=== PATIENT | male | born 1940 | race Hispanic/Latino ===

== ENCOUNTER 2022-03-07 12:10 | Inpatient (IN) | payer OTHER ==
--- OUTSIDE RECORDS SUMMARY | 2022-03-07 12:13 | XMS REPORT | Continuity of Care Document ---
:1940 Author Organization [facility] t Address [address] [place] [address] Care Team Providers Name Role Phone LUIS SPENCER Attending Clinician Unavailable JARAD ARNOLD Attending Clinician Unavailable Payers Payer Name Policy Type Policy Number Effective Date Expiration Date S ource MEDICARE B RAILROAD [id number] 2018 00:00:00 COMMERCIAL [id number] 2018 NON-CONTRACT 00:00:00 GENERIC Problems This patient has no known problems. Allergies, Adverse Reactions, Alerts Allergy Allergy Status Severity Reaction(s) Onset Inactive Treating Comm ents Source Name Type Date Date Clinician NO KNOWN Drug Active [facility] ALLERGIE [facility] Medications This patient has no known medications. Procedures This patient has no known procedures. Encounters Start End Encounter Admission Attending Care Care Encounter Source Date/Time Date/Time Type Type Clinicians Facility Department ID 2019-10-07 Inpatient HCAWU RAJENDRA [id number] [facility] 21:17:[address] [place] [address] 2020-04-16 2020-04-16 Outpatient Oswaldo SPENCER [facility] [id number] [facility] 11:20:00 11:20:00 LUIS florez [facility] 2019-05-12 2019-05-12 Outpatient Oswaldo ARNOLD [facility] [id number] [facility] 08:45:00 08:45:00 JARAD [facility] Results Test Description Test Time Test Comments Results Result Comments Source UA RFLX MICR CULT IF INDICATED 2019-10-08 00:35:00 Test Item Value Reference Range Interpretation Comme nts UA COLOR (test code = COLU) YELLOW YELLOW UA APPEARANCE (test code = APPU) CLEAR CLEAR UA GLUCOSE DIPSTICK (test code = DGLUU) NORMAL MG/DL NORMAL UA BILIRUBIN DIPSTICK (test code = BILU) NEGATIVE MG/DL NEGATIVE UA KETONE DIPSTICK (test code = KETU) 50 MG/DL NEGATIVE A UA SPECIFIC GRAVITY (test code = SGU) 1.025 1.003-1.030 N UA BLOOD DIPSTICK (test code = GENARO) NEGATIVE Angel/mm3 NEGATIVE UA PH DIPSTICK (test code = TRA) 5.0 5.0-9.0 N UA PROTEIN DIPSTICK (test code = PROU) 15 MG/DL NEGATIVE UA UROBILINIOGEN DIPSTICK (test code = URO) NORMAL MG/DL NORMAL UA NITRITE DIPSTICK (test code = STORM) NEGATIVE NEGATIVE UA LEUKOCYTE ESTERASE DIPSTICK (test code = LEUU) NEGATIVE /mm3 NEG ATIVE UA CULTURE NEEDED? (test code = UACULT) NO, WBC<10 Criteria Culture Chk SOURCE OF URINE: CLEAN CATCHIndication for culture: Sev. Sepsis-no other srcUA [id number] 00:35:00 Test Item Value Reference Range Interpretation Comments UA RBC (test code = RBCU) 0-3 RBC/HPF 0-3 UA WBC (test code = XWBCU) 0-3 WBC/HPF 0-5 UA EPITHELIAL CELLS (test code = FEW EPI/HPF FEW EPIU) UA BACTERIA (test code = XBACU) FEW NONE UA HYALINE CAST (test code = 0-5 0-2/HPF A HYALU) UA MUCUS (test code = MUCU) SLIGHT #/LPF NONE SOURCE OF URINE: CLEAN CATCHIndication for culture: Sev. Sepsis-no other src- CT HEAD/BRAIN W/O [id number] 00:32:00 Patient Name: JERSEY CAMPOS Unit No: [id number] EXAMS: CPT CODE: [id number] CT HEAD/BRAIN W/O CONT 79084 EXAM: CT BRAIN WITHOUT CONTRAST INDICATION: Altered mental status COMPARISON: None available TECHNIQUE: Routine axial CT images of the brain were obtained without venous contrast. IV contrast: None DLP: 737.12 mGy-cm FINDINGS: No intra-axial or extra-axial fluid collections were identified. No acute intracranial hemorrhage. There are areas of low-attenuation within the supratentorial white matter consistent with chronic microvascular ischemic changes. There is prominence of the sulci consistent with diffuse cerebral volume loss. No midline shift or mass effect. The basal cisterns are patent. The posterior fossa and 4th ventricle are normal. No calvarial lesions are identified. The paranasal sinuses and mastoid air cells are clear. The orbits and globes are unremarkable. IMPRESSION: No acuteintracranial abnormality. No intracranial hemorrhage. Moderate chronic microvascular ischemic changes and diffuse cerebral volume loss. LOCATION: B2 This CT exam was performed according to our departmental dose optimization program, which includes automated exposure control, adjustment of the mA and or kV according to patient size and/or use of iterative reconstruction technique. at 0032 Reported and signed by: Phoebe Song MD CC: JESSIKA DAS DO; Courtney Dumont MD Technologist: Jalen Teran, RT(R) CTDI: DLP: Trnscrpt: 10/08/2019 (0032) 16 [facility] NAME: JERSEY CAMPOS [id number] [address] PHYS: Courtney Morrow MD [address] [address] : 1940 AGE: 78 SEX: M LOC: .This Week In PHONE #: [phone] EXAM DATE: 10/08/2019 STATUS: REG ER FAX #: [phone] RAD #: D/C DT PAGE 1 Signed Report Patient Name: JERSEY CAMPOS Unit No: [id number] EXAMS: CPT CODE: [id number] CT HEAD/BRAIN W/O CONT 02046 (Continued) Orig Print D/T: S: 10/08/2019 (0035) [facility] NAME: JERSEY CAMPOS [id number] [address] PHYS: Courtney Morrow MD [address] [address] : 1940 AGE: 78 SEX: M LOC: .ERS PHONE #: [phone] EXAM DATE: 10/08/2019 STATUS: REG ER FAX #: [phone] RAD #: D/C DT PAGE 2 Signed ReportUA RFLX MICR CULT IF INDICATED 2019-10-08 00:25:00 Test Item Value Reference Range Interpretation Comments UA COLOR (test code = COLU) YELLOW YELLOW UA APPEARANCE (test code = CLEAR CLEAR APPU) UA GLUCOSE DIPSTICK (test NORMAL MG/DL NORMAL code = DGLUU) UA BILIRUBIN DIPSTICK (test NEGATIVE MG/DL NEGATIVE code = BILU) UA KETONE DIPSTICK (test 50 MG/DL NEGATIVE A code = KETU) UA SPECIFIC GRAVITY (test 1.025 1.003-1.030 N code = SGU) UA BLOOD DIPSTICK (test code NEGATIVE Angel/mm3 NEGATIVE = GENARO) UA PH DIPSTICK (test code = 5.0 5.0-9.0 N TRA) UA PROTEIN DIPSTICK (test 15 MG/DL NEGATIVE code = PROU) UA UROBILINIOGEN DIPSTICK NORMAL MG/DL NORMAL (test code = URO) UA NITRITE DIPSTICK (test NEGATIVE NEGATIVE code = STORM) UA LEUKOCYTE ESTERASE NEGATIVE /mm3 NEGATIVE DIPSTICK (test code = LEUU) UA CULTURE NEEDED? (test Criteria Culture Chk code = UACULT) SOURCE OF URINE: CLEAN CATCHIndication for culture: Sev. Sepsis-no other srcUA [id number] 00:25:00 Test Item Value Reference Range Interpretation Comments UA RBC (test code = RBCU) RBC/HPF 0-3 UA WBC (test code = XWBCU) WBC/HPF 0-5 UA EPITHELIAL CELLS (test code = EPI/HPF FEW EPIU) UA BACTERIA (test code = XBACU) NONE SOURCE OF URINE: CLEAN CATCHIndication for culture: Sev. Sepsis-no other srcUA RFLX MICR CULT IF [id number] 00:25:00 Test Item Value Reference Range Interpretation Comments UA COLOR (test code = COLU) YELLOW YELLOW UA APPEARANCE (test code = CLEAR CLEAR APPU) UA GLUCOSE DIPSTICK (test NORMAL MG/DL NORMAL code = DGLUU) UA BILIRUBIN DIPSTICK (test NEGATIVE MG/DL NEGATIVE code = BILU) UA KETONE DIPSTICK (test 50 MG/DL NEGATIVE A code = KETU) UA SPECIFIC GRAVITY (test 1.025 1.003-1.030 N code = SGU) UA BLOOD DIPSTICK (test code NEGATIVE Angel/mm3 NEGATIVE = GENARO) UA PH DIPSTICK (test code = 5.0 5.0-9.0 N TRA) UA PROTEIN DIPSTICK (test 15 MG/DL NEGATIVE code = PROU) UA UROBILINIOGEN DIPSTICK NORMAL MG/DL NORMAL (test code = URO) UA NITRITE DIPSTICK (test NEGATIVE NEGATIVE code = STORM) UA LEUKOCYTE ESTERASE NEGATIVE /mm3 NEGATIVE DIPSTICK (test code = LEUU) UA CULTURE NEEDED? (test Criteria Culture Chk code = UACULT) SOURCE OF URINE: CLEAN CATCHIndication for culture: Sev. Sepsis-no other srcUA [id number] 00:25:00 Test Item Value Reference Range Interpretation Comments UA RBC (test code = RBCU) RBC/HPF 0-3 UA WBC (test code = XWBCU) WBC/HPF 0-5 UA EPITHELIAL CELLS (test code = EPI/HPF FEW EPIU) UA BACTERIA (test code = XBACU) NONE SOURCE OF URINE: CLEAN CATCHIndication for culture: Sev. Sepsis-no other srcCBC W/AUTO [id number] 23:27:00 Test Item Value Reference Range Interpretation Comments WHITE BLOOD CELL (test code = 8.6 K/MM3 3.8-9.8 N WBC) RED BLOOD CELL (test code = 4.50 M/MM3 3.95-5.67 N RBC) HEMOGLOBIN (test code = HGB) 13.0 G/DL 12.4-16.7 N HEMATOCRIT (test code = HCT) 40.1 % 35.9-49.5 N MEAN CELL VOLUME (test code = 89 fL 81.7-96.1 N MCV) MEAN CELL HGB (test code = MCH) 28.9 pg 27.6-33.2 N MEAN CELL HGB CONCETRATION 32.4 % 32.9-35.5 L (test code = MCHC) RED CELL DISTRIBUTION WIDTH 13.8 % 12.1-15.2 N (test code = RDW) PLATELET COUNT (test code = 165 K/MM3 129-368 N PLT) MEAN PLATELET VOLUME (test code 13.3 fl 7.4-10.4 H = MPV) NEUTROPHIL % (test code = NT%) 70.5 % 43-75 N IMMATURE GRANULOCYTE % (test 0.4 % 0.0-2.0 N code = IG%) LYMPHOCYTE % (test code = LY%) 16.8 % 14-44 N MONOCYTE % (test code = MO%) 11.3 % 4-13 N EOSINOPHIL % (test code = EO%) 0.8 % 0-6 N BASOPHIL % (test code = BA%) 0.2 % 0-2 N NUCLEATED RBC % (test code = 0.0 % 0-1.0 N NRBC%) NEUTROPHIL # (test code = NT#) 6.04 K/mm3 2.0-7.6 N IMMATURE GRANULOCYTE # (test 0.03 x10 3/uL 0-0.03 N code = IG#) LYMPHOCYTE # (test code = LY#) 1.44 K/mm3 1.0-3.8 N MONOCYTE # (test code = MO#) 0.97 K/mm3 0.1-0.8 H EOSINOPHIL # (test code = EO#) 0.07 K/mm3 0.0-0.2 N BASOPHIL # (test code = BA#) 0.02 K/mm3 0.0-0.2 N NUCLEATED RBC # (test code = 0.00 K/mm3 0.0-0.1 N NRBC#) DIFFERENTIAL [id number] 23:27:00 Test Item Value Reference Range Interpretation Comments RBC MORPHOLOGY REQUIRED (test code = ABNORMAL RBCM) POIKILOCYTOSIS (test code = POIK) MANY NONE ANISOCYTOSIS (test code = ANISO) SLIGHT NONE SPHEROCYTES (test code = SPH) FEW NONE ELLIPTOCYTES (test code = ELL) FEW NONE FAY CELLS (test code = FAY) MANY NONE ACANTHOCYTES (test code = ACAN) MODERATE NONE OVALOCYTES (test code = OVAL) FEW NONE SCHISTOCYTES (test code = DANIEL) FEW NONE PLATELET ESTIMATE (test code = ADEQUATE ADEQUATE PLTEST) PLATELET MORPHOLOGY (test code = NORMAL NORMAL PLTMORPH) PROTHROMBIN [id number] 23:10:00 Test Item Value Reference Range Interpretation Comments PROTHROMBIN TIME 12.5 SECONDS 9.4-12.5 N PATIENT (test code = PTP) INTERNATIONAL NORMAL 1.1 The INR is to be RATIO (test code = used only for INR) monitoring oral anticoagulantth erap y. INDICATION I NR VALUE ---- ---- ---- -------1. Prophylaxis, de ep venous thrombos is, including high risk surgery. 2.0 - 3.0 2. Prophylaxis, deep venous thrombosis, hip surgery, treatm ent for deep venous thrombosis or pulmonary prevention of systemic emboli sm in patients wit h valvular heart disease, atrial fibrillation, tissue heart va lve, or acute myocar dial infarction. 2.0 - 3.0 3. Linter Tender al prosthesis hear t valves, recurre nt systemic emboli sm. 3.0 - 4.5 PTT [id number] 23:10:00 Test Item Value Reference Range Interpretation Comments PTT ACTIVATED (test code = APTT) 28.0 SECONDS 25.1-36.5 N [id number] 23:10:00 Test Item Value Reference Range Interpretation Comments D-DIMER (test 416 ng/mLFEU 0-499 N Negative Predi ctive Value code = DDIMER) cutoff for DV T & PE: < 500 ng/mL FEUInterp retation: A value of < 500 ng/mL FEU has a NegativeP redictive Value in ruling out a DVT or PE diagnosis .A value of 500 ng/mL or gr eater is considered Positive.Positi ve result cannot be used for the diagnosis of DV T andPE without using o f standard radiological pr ocedures. BASIC METABOLIC [id number] 22:43:00 Test Item Value Reference Range Interpretation Comments SODIUM (test code = 132 MMOL/L 137-145 L NA) POTASSIUM (test code = 3.3 MMOL/L 3.5-5.1 L K) CHLORIDE (test code = 96 MMOL/L 98-107 L CL) CARBON DIOXIDE (test 26 MMOL/L 22-30 N code = CO2) GLUCOSE (test code = 130 MG/DL 74-106 H GLU) BLOOD UREA NITROGEN 19 MG/DL 9-20 N (test code = BUN) GLOMERULAR FILTRATION 59 Report ing units: RATE (test code = GFR) ml/mi n/1.73 m2 (Modified MDRD Formula)Referen ce Range: > or = 6 0 ml/min/1.73 m2 CREATININE (test code 1.20 MG/DL 0.66-1.25 N = CREAT) CALCIUM (test code = 8.5 MG/DL 8.4-10.2 N CA) HEPATIC FUNCTION [id number] 22:43:00 Test Item Value Reference Range Interpretation Comments TOTAL PROTEIN (test code = PROT) 7.1 G/DL 6.2-7.6 N ALBUMIN (test code = ALB) 4.0 G/DL 3.5-5.0 N BILIRUBIN TOTAL (test code = BILT) 1.0 MG/DL 0.2-1.3 N BILIRUBIN DIRECT (test code = 0.0 MG/DL 0.0-0.3 N BILD) SGOT/AST (test code = AST) 30 UNITS/L 17-59 N SGPT/ALT (test code = ALT) 24 UNITS/L <50 ALKALINE PHOSPHATASE (test code = 78 UNITS/L 38-126 N ALKP) LACTIC DEHYDROGENASE(LDH)2019-10-07 22:43:00 Test Item Value Reference Range Interpretation Comments LACTIC DEHYDROGENASE(LDH) (test 171 UNITS/L 120-246 N code = LDH) [id number] 22:43:00 Test Item Value Reference Range Interpretation Comments LIPASE (test code = LIP) 81 UNITS/L 23-300 N [id number] 22:43:00 Test Item Value Reference Range Interpretation Comments MAGNESIUM (test code = MAG) 1.7 MG/DL 1.6-2.3 N [id number] 22:43:00 Test Item Value Reference Range Interpretation Comments TROPONIN-I (test code = TROPI) < 0.012 NG/ML 0.012-0.033 L PROCALCITONIN (PCT)2019-10-07 22:43:00 Test Item Value Reference Range Interpretation Comments PROCALCITONIN (PCT) < 0.05 NG/ML PROCALCI TONIN (PCT) (test code = PROCAL) NORMAL RANGE (ADULT):<0.05 N G/ML. - a concentration < 0.5 ng/mL represent s a low risk ofsevere s epsis and/or septic s hock. - a concentration > 2 ng/mL represent s a high risk ofsev ere sepsis and/or s eptic shock. Neverthe less, concentrations < 0.5 ng/mL do not ex clude aninfection, on account of loca lized infections (withoutsystemi c signs) which ca n be associated with such lowconcentratio ns, or a systemic infe ction in its initials tages (< 6 hours). Furthermore, in creased procalcitoninca n occur without infecti on. PCT concentrations between 0.5and 2.0 ng/ mL should be inter preted taking into acc ount thepatient's hi story. It is recommend ed to retest PCT with in 6-24 hours if any concentrations < 2 ng/mL are obtai lisa. [id number] 22:43:00 Test Item Value Reference Range Interpretation Comments FERRITIN (test code = EDY) 29.6 NG/ML 6.24-137 N BASIC METABOLIC [id number] 22:31:00 Test Item Value Reference Range Interpretation Comments SODIUM (test code = 132 MMOL/L 137-145 L NA) POTASSIUM (test code = 3.3 MMOL/L 3.5-5.1 L K) CHLORIDE (test code = 96 MMOL/L 98-107 L CL) CARBON DIOXIDE (test 26 MMOL/L 22-30 N code = CO2) GLUCOSE (test code = 130 MG/DL 74-106 H GLU) BLOOD UREA NITROGEN 19 MG/DL 9-20 N (test code = BUN) GLOMERULAR FILTRATION 59 Report ing units: RATE (test code = GFR) ml/mi n/1.73 m2 (Modified MDRD Formula)Referen ce Range: > or = 6 0 ml/min/1.73 m2 CREATININE (test code 1.20 MG/DL 0.66-1.25 N = CREAT) CALCIUM (test code = 8.5 MG/DL 8.4-10.2 N CA) HEPATIC FUNCTION [id number] 22:31:00 Test Item Value Reference Range Interpretation Comments TOTAL PROTEIN (test code = PROT) 7.1 G/DL 6.2-7.6 N ALBUMIN (test code = ALB) 4.0 G/DL 3.5-5.0 N BILIRUBIN TOTAL (test code = BILT) 1.0 MG/DL 0.2-1.3 N BILIRUBIN DIRECT (test code = 0.0 MG/DL 0.0-0.3 N BILD) SGOT/AST (test code = AST) 30 UNITS/L 17-59 N SGPT/ALT (test code = ALT) 24 UNITS/L <50 ALKALINE PHOSPHATASE (test code = 78 UNITS/L 38-126 N ALKP) LACTIC DEHYDROGENASE(LDH)2019-10-07 22:31:00 Test Item Value Reference Range Interpretation Comments LACTIC DEHYDROGENASE(LDH) (test 171 UNITS/L 120-246 N code = LDH) [id number] 22:31:00 Test Item Value Reference Range Interpretation Comments LIPASE (test code = LIP) 81 UNITS/L 23-300 N [id number] 22:31:00 Test Item Value Reference Range Interpretation Comments MAGNESIUM (test code = MAG) 1.7 MG/DL 1.6-2.3 N [id number] 22:31:00 Test Item Value Reference Range Interpretation Comments TROPONIN-I (test code = TROPI) < 0.012 NG/ML 0.012-0.033 L PROCALCITONIN (PCT)2019-10-07 22:31:00 Test Item Value Reference Range Interpretation Comments PROCALCITONIN (PCT) < 0.05 NG/ML PROCALCI TONIN (PCT) (test code = PROCAL) NORMAL RANGE (ADULT):<0.05 N G/ML. - a concentration < 0.5 ng/mL represent s a low risk ofsevere s epsis and/or septic s hock. - a concentration > 2 ng/mL represent s a high risk ofsev ere sepsis and/or s eptic shock. Neverthe less, concentrations < 0.5 ng/mL do not ex clude aninfection, on account of loca lized infections (withoutsystemi c signs) which ca n be associated with such lowconcentratio ns, or a systemic infe ction in its initials tages (< 6 hours). Furthermore, in creased procalcitoninca n occur without infecti on. PCT concentrations between 0.5and 2.0 ng/m L should be inter preted taking into acc ount thepatient's hi story. It is recommend ed to retest PCT with in 6-24 hours if any concentrations < 2 ng/mL are obtai lisa. [id number] 22:31:00 Test Item Value Reference Range Interpretation Comments FERRITIN (test code = EDY) NG/ML 6.24-137 B-TYPE NATRIURETIC [id number] 22:30:00 Test Item Value Reference Range Interpretation Comments B-TYPE NATRIURETIC PEPTIDE (test 32.0 PG/ML 0-100 N code = BNP) BASIC METABOLIC [id number] 22:28:00 Test Item Value Reference Range Interpretation Comments SODIUM (test code = 132 MMOL/L 137-145 L NA) POTASSIUM (test code = 3.3 MMOL/L 3.5-5.1 L K) CHLORIDE (test code = 96 MMOL/L 98-107 L CL) CARBON DIOXIDE (test 26 MMOL/L 22-30 N code = CO2) GLUCOSE (test code = 130 MG/DL 74-106 H GLU) BLOOD UREA NITROGEN 19 MG/DL 9-20 N (test code = BUN) GLOMERULAR FILTRATION 59 Report ing units: RATE (test code = GFR) ml/mi n/1.73 m2 (Modified MDRD Formula)Referen ce Range: > or = 6 0 ml/min/1.73 m2 CREATININE (test code 1.20 MG/DL 0.66-1.25 N = CREAT) CALCIUM (test code = 8.5 MG/DL 8.4-10.2 N CA) HEPATIC FUNCTION [id number] 22:28:00 Test Item Value Reference Range Interpretation Comments TOTAL PROTEIN (test code = PROT) 7.1 G/DL 6.2-7.6 N ALBUMIN (test code = ALB) 4.0 G/DL 3.5-5.0 N BILIRUBIN TOTAL (test code = BILT) 1.0 MG/DL 0.2-1.3 N BILIRUBIN DIRECT (test code = 0.0 MG/DL 0.0-0.3 N BILD) SGOT/AST (test code = AST) 30 UNITS/L 17-59 N SGPT/ALT (test code = ALT) 24 UNITS/L <50 ALKALINE PHOSPHATASE (test code = 78 UNITS/L 38-126 N ALKP) LACTIC DEHYDROGENASE(LDH)2019-10-07 22:28:00 Test Item Value Reference Range Interpretation Comments LACTIC DEHYDROGENASE(LDH) (test 171 UNITS/L 120-246 N code = LDH) [id number] 22:28:00 Test Item Value Reference Range Interpretation Comments LIPASE (test code = LIP) 81 UNITS/L 23-300 N [id number] 22:28:00 Test Item Value Reference Range Interpretation Comments MAGNESIUM (test code = MAG) 1.7 MG/DL 1.6-2.3 N [id number] 22:28:00 Test Item Value Reference Range Interpretation Comments TROPONIN-I (test code = TROPI) NG/ML 0.0-0.045 PROCALCITONIN (PCT)2019-10-07 22:28:00 Test Item Value Reference Range Interpretation Comments PROCALCITONIN (PCT) < 0.05 NG/ML PROCALCI TONIN (PCT) (test code = PROCAL) NORMAL RANGE (ADULT):<0.05 N G/ML. - a concentration < 0.5 ng/mL represent s a low risk ofsevere s epsis and/or septic s hock. - a concentration > 2 ng/mL represent s a high risk ofsev ere sepsis and/or s eptic shock. Neverthe less, concentrations < 0.5 ng/mL do not ex clude aninfection, on account of loca lized infections (withoutsystemi c signs) which ca n be associated with such lowconcentratio ns, or a systemic infe ction in its initials tages (< 6 hours). Furthermore, in creased procalcitoninca n occur without infecti on. PCT concentrations between 0.5and 2.0 ng/m L should be inter preted taking into acc ount thepatient's hi story. It is recommend ed to retest PCT with in 6-24 hours if any concentrations < 2 ng/mL are obtai lisa. [id number] 22:28:00 Test Item Value Reference Range Interpretation Comments FERRITIN (test code = EDY) NG/ML 6.24-137 - XR CHEST [id number] 22:26:00 Patient Name: JERSEY CAMPOS Unit No: [id number] EXAMS: CPT CODE: [id number] XR CHEST 1V [id number] EXAM: CHEST ONE VIEW INDICATION: SHORTNESS OF BREATH LOCATION: B2 COMPARISON: None available TECHNIQUE: AP view of the chest FINDINGS: The heart size is normal. The lungs are clear bilaterally. The pulmonary vasculature is normal. No pneumothorax or pleural effusion is identified. The osseous structures are normal. IMPRESSION: No acute cardiopulmonary process. at 2226 Reported and signed by: Phoebe Song MD CC: JESSIKA DAS DO Technologist: Gonzalez Petersen (RT) (R) Transcrpt Date/Tm/Trnsp: 10/07/2019 (2225) [id number] Orig Print D/T: S: 10/07/2019 (7518) [facility] NAME: JERSEY CAMPOS [id number] PHYS: [place] [address] : 1940 AGE: 78 SEX: M LOC: ZKatarinaERS PHONE #: [phone] EXAM DATE: 10/07/2019 STATUS: REG ER FAX #: [phone] RADIOLOGY NO: PAGE 1 Signed ReportCoronavirus 2018 nCoV [id number] 22:17:00 Test Item Value Reference Range Interpretation Comments Coronavirus 2019 Negative Negative Results are for the nCoV Bedside (test identific ation of code = SARS-CoV-2 RNA. [id number]) [id number] RNA is generally detec table in respiratorysamp les during the acute phase of infection. Posi tiveresults are indicative of the presence of AUBREE S-CoV-2 RNA;clinical co rrelation with patient hi story and otherdiagnostic information is necessary to determine patientinfectio n status. Positive result s do not rule out bacterialinfect ion or co-infection wi th other viruses. C REACTIVE [id number] 22:11:00 Test Item Value Reference Range Interpretation Comments C REACTIVE PROTEIN (test code = 0.90 MG/DL 0.00-9.99 N CRP) LACTIC [id number] 22:09:00 Test Item Value Reference Range Interpretation Comments LACTIC ACID (test code = LACT) 1.4 MMOL/L 0.7-2.1 N BASIC METABOLIC [id number] 22:09:00 Test Item Value Reference Range Interpretation Comments SODIUM (test code = 132 MMOL/L 137-145 L NA) POTASSIUM (test code = 3.3 MMOL/L 3.5-5.1 L K) CHLORIDE (test code = 96 MMOL/L 98-107 L CL) CARBON DIOXIDE (test 26 MMOL/L 22-30 N code = CO2) GLUCOSE (test code = 130 MG/DL 74-106 H GLU) BLOOD UREA NITROGEN 19 MG/DL 9-20 N (test code = BUN) GLOMERULAR FILTRATION 59 Report ing units: RATE (test code = GFR) ml/mi n/1.73 m2 (Modified MDRD Formula)Referen ce Range: > or = 6 0 ml/min/1.73 m2 CREATININE (test code 1.20 MG/DL 0.66-1.25 N = CREAT) CALCIUM (test code = 8.5 MG/DL 8.4-10.2 N CA) HEPATIC FUNCTION [id number] 22:09:00 Test Item Value Reference Range Interpretation Comments TOTAL PROTEIN (test code = PROT) 7.1 G/DL 6.2-7.6 N ALBUMIN (test code = ALB) 4.0 G/DL 3.5-5.0 N BILIRUBIN TOTAL (test code = BILT) 1.0 MG/DL 0.2-1.3 N BILIRUBIN DIRECT (test code = 0.0 MG/DL 0.0-0.3 N BILD) SGOT/AST (test code = AST) 30 UNITS/L 17-59 N SGPT/ALT (test code = ALT) 24 UNITS/L <50 ALKALINE PHOSPHATASE (test code = 78 UNITS/L 38-126 N ALKP) LACTIC DEHYDROGENASE(LDH)2019-10-07 22:09:00 Test Item Value Reference Range Interpretation Comments LACTIC DEHYDROGENASE(LDH) (test 171 UNITS/L 120-246 N code = LDH) [id number] 22:09:00 Test Item Value Reference Range Interpretation Comments LIPASE (test code = LIP) 81 UNITS/L 23-300 N [id number] 22:09:00 Test Item Value Reference Range Interpretation Comments MAGNESIUM (test code = MAG) 1.7 MG/DL 1.6-2.3 N [id number] 22:09:00 Test Item Value Reference Range Interpretation Comments TROPONIN-I (test code = TROPI) NG/ML 0.0-0.045 PROCALCITONIN (PCT)2019-10-07 22:09:00 Test Item Value Reference Range Interpretation Comments PROCALCITONIN (PCT) (test code = NG/ML PROCAL) [id number] 22:09:00 Test Item Value Reference Range Interpretation Comments FERRITIN (test code = EDY) NG/ML 6.24-137 BASIC METABOLIC [id number] 22:08:00 Test Item Value Reference Range Interpretation Comments SODIUM (test code = 132 MMOL/L 137-145 L NA) POTASSIUM (test code = 3.3 MMOL/L 3.5-5.1 L K) CHLORIDE (test code = 96 MMOL/L 98-107 L CL) CARBON DIOXIDE (test 26 MMOL/L 22-30 N code = CO2) GLUCOSE (test code = 130 MG/DL 74-106 H GLU) BLOOD UREA NITROGEN 19 MG/DL 9-20 N (test code = BUN) GLOMERULAR FILTRATION 59 Report ing units: RATE (test code = GFR) ml/mi n/1.73 m2 (Modified MDRD Formula)Referen ce Range: > or = 6 0 ml/min/1.73 m2 CREATININE (test code 1.20 MG/DL 0.66-1.25 N = CREAT) CALCIUM (test code = MG/DL 8.7-9.7 CA) HEPATIC FUNCTION [id number] 22:08:00 Test Item Value Reference Range Interpretation Comments TOTAL PROTEIN (test code = PROT) 7.1 G/DL 6.2-7.6 N ALBUMIN (test code = ALB) 4.0 G/DL 3.5-5.0 N BILIRUBIN TOTAL (test code = BILT) 1.0 MG/DL 0.2-1.3 N BILIRUBIN DIRECT (test code = 0.0 MG/DL 0.0-0.3 N BILD) SGOT/AST (test code = AST) 30 UNITS/L 17-59 N SGPT/ALT (test code = ALT) UNITS/L <50 ALKALINE PHOSPHATASE (test code = 78 UNITS/L 38-126 N ALKP) LACTIC DEHYDROGENASE(LDH)2019-10-07 22:08:00 Test Item Value Reference Range Interpretation Comments LACTIC DEHYDROGENASE(LDH) (test 171 UNITS/L 120-246 N code = LDH) [id number] 22:08:00 Test Item Value Reference Range Interpretation Comments LIPASE (test code = LIP) UNITS/L 23-300 [id number] 22:08:00 Test Item Value Reference Range Interpretation Comments MAGNESIUM (test code = MAG) MG/DL 1.6-2.3 [id number] 22:08:00 Test Item Value Reference Range Interpretation Comments TROPONIN-I (test code = TROPI) NG/ML 0.0-0.045 PROCALCITONIN (PCT)2019-10-07 22:08:00 Test Item Value Reference Range Interpretation Comments PROCALCITONIN (PCT) (test code = NG/ML PROCAL) [id number] 22:08:00 Test Item Value Reference Range Interpretation Comments FERRITIN (test code = EDY) NG/ML 6.24-137 BASIC METABOLIC [id number] 22:06:00 Test Item Value Reference Range Interpretation Comments SODIUM (test code = NA) 132 MMOL/L 137-145 L POTASSIUM (test code = K) 3.3 MMOL/L 3.5-5.1 L CHLORIDE (test code = CL) 96 MMOL/L 98-107 L CARBON DIOXIDE (test code = CO2) MMOL/L 22-30 GLUCOSE (test code = GLU) MG/DL 74-106 BLOOD UREA NITROGEN (test code = MG/DL 9-20 BUN) GLOMERULAR FILTRATION RATE (test code = GFR) CREATININE (test code = CREAT) MG/DL 0.66-1.25 CALCIUM (test code = CA) MG/DL 8.7-9.7 HEPATIC FUNCTION [id number] 22:06:00 Test Item Value Reference Range Interpretation Comments TOTAL PROTEIN (test code = PROT) G/DL 6.2-7.6 ALBUMIN (test code = ALB) 4.0 G/DL 3.5-5.0 N BILIRUBIN TOTAL (test code = BILT) MG/DL 0.2-1.3 BILIRUBIN DIRECT (test code = BILD) MG/DL 0.0-0.3 SGOT/AST (test code = AST) UNITS/L 15-37 SGPT/ALT (test code = ALT) UNITS/L <50 ALKALINE PHOSPHATASE (test code = UNITS/L 38-126 ALKP) LACTIC DEHYDROGENASE(LDH)2019-10-07 22:06:00 Test Item Value Reference Range Interpretation Comments LACTIC DEHYDROGENASE(LDH) (test code UNITS/L 120-246 = LDH) [id number] 22:06:00 Test Item Value Reference Range Interpretation Comments LIPASE (test code = LIP) UNITS/L 23-300 [id number] 22:06:00 Test Item Value Reference Range Interpretation Comments MAGNESIUM (test code = MAG) MG/DL 1.6-2.3 [id number] 22:06:00 Test Item Value Reference Range Interpretation Comments TROPONIN-I (test code = TROPI) NG/ML 0.0-0.045 PROCALCITONIN (PCT)2019-10-07 22:06:00 Test Item Value Reference Range Interpretation Comments PROCALCITONIN (PCT) (test code = NG/ML PROCAL) [id number] 22:06:00 Test Item Value Reference Range Interpretation Comments FERRITIN (test code = EDY) NG/ML 6.24-137 BASIC METABOLIC [id number] 22:05:00 Test Item Value Reference Range Interpretation Comments SODIUM (test code = NA) MMOL/L 137-145 POTASSIUM (test code = K) MMOL/L 3.5-5.1 CHLORIDE (test code = CL) 96 MMOL/L 98-107 L CARBON DIOXIDE (test code = CO2) MMOL/L 22-30 GLUCOSE (test code = GLU) MG/DL 74-106 BLOOD UREA NITROGEN (test code = MG/DL 9-20 BUN) GLOMERULAR FILTRATION RATE (test code = GFR) CREATININE (test code = CREAT) MG/DL 0.66-1.25 CALCIUM (test code = CA) MG/DL 8.7-9.7 HEPATIC FUNCTION [id number] 22:05:00 Test Item Value Reference Range Interpretation Comments TOTAL PROTEIN (test code = PROT) G/DL 6.2-7.6 ALBUMIN (test code = ALB) 4.0 G/DL 3.5-5.0 N BILIRUBIN TOTAL (test code = BILT) MG/DL 0.2-1.3 BILIRUBIN DIRECT (test code = BILD) MG/DL 0.0-0.3 SGOT/AST (test code = AST) UNITS/L 15-37 SGPT/ALT (test code = ALT) UNITS/L <50 ALKALINE PHOSPHATASE (test code = UNITS/L 38-126 ALKP) LACTIC DEHYDROGENASE(LDH)2019-10-07 22:05:00 Test Item Value Reference Range Interpretation Comments LACTIC DEHYDROGENASE(LDH) (test code UNITS/L 120-246 = LDH) [id number] 22:05:00 Test Item Value Reference Range Interpretation Comments LIPASE (test code = LIP) UNITS/L 23-300 [id number] 22:05:00 Test Item Value Reference Range Interpretation Comments MAGNESIUM (test code = MAG) MG/DL 1.6-2.3 [id number] 22:05:00 Test Item Value Reference Range Interpretation Comments TROPONIN-I (test code = TROPI) NG/ML 0.0-0.045 PROCALCITONIN (PCT)2019-10-07 22:05:00 Test Item Value Reference Range Interpretation Comments PROCALCITONIN (PCT) (test code = NG/ML PROCAL) [id number] 22:05:00 Test Item Value Reference Range Interpretation Comments FERRITIN (test code = EDY) NG/ML 6.24-137 BASIC METABOLIC [id number] 22:04:00 Test Item Value Reference Range Interpretation Comments SODIUM (test code = NA) MMOL/L 137-145 POTASSIUM (test code = K) MMOL/L 3.5-5.1 CHLORIDE (test code = CL) 96 MMOL/L 98-107 L CARBON DIOXIDE (test code = CO2) MMOL/L 22-30 GLUCOSE (test code = GLU) MG/DL 74-106 BLOOD UREA NITROGEN (test code = MG/DL 9-20 BUN) GLOMERULAR FILTRATION RATE (test code = GFR) CREATININE (test code = CREAT) MG/DL 0.66-1.25 CALCIUM (test code = CA) MG/DL 8.7-9.7 HEPATIC FUNCTION [id number] 22:04:00 Test Item Value Reference Range Interpretation Comments TOTAL PROTEIN (test code = PROT) G/DL 6.2-7.6 ALBUMIN (test code = ALB) G/DL 3.5-5.0 BILIRUBIN TOTAL (test code = BILT) MG/DL 0.2-1.3 BILIRUBIN DIRECT (test code = BILD) MG/DL 0.0-0.3 SGOT/AST (test code = AST) UNITS/L 15-37 SGPT/ALT (test code = ALT) UNITS/L <50 ALKALINE PHOSPHATASE (test code = UNITS/L 38-126 ALKP) LACTIC DEHYDROGENASE(LDH)2019-10-07 22:04:00 Test Item Value Reference Range Interpretation Comments LACTIC DEHYDROGENASE(LDH) (test code UNITS/L 120-246 = LDH) [id number] 22:04:00 Test Item Value Reference Range Interpretation Comments LIPASE (test code = LIP) UNITS/L 23-300 [id number] 22:04:00 Test Item Value Reference Range Interpretation Comments MAGNESIUM (test code = MAG) MG/DL 1.6-2.3 [id number] 22:04:00 Test Item Value Reference Range Interpretation Comments TROPONIN-I (test code = TROPI) NG/ML 0.0-0.045 PROCALCITONIN (PCT)2019-10-07 22:04:00 Test Item Value Reference Range Interpretation Comments PROCALCITONIN (PCT) (test code = NG/ML PROCAL) [id number] 22:04:00 Test Item Value Reference Range Interpretation Comments FERRITIN (test code = EDY) NG/ML 6.24-137 CBC W/AUTO [id number] 21:52:00 Test Item Value Reference Range Interpretation Comments WHITE BLOOD CELL (test code = 8.6 K/MM3 3.8-9.8 N WBC) RED BLOOD CELL (test code = 4.50 M/MM3 3.95-5.67 N RBC) HEMOGLOBIN (test code = HGB) 13.0 G/DL 12.4-16.7 N HEMATOCRIT (test code = HCT) 40.1 % 35.9-49.5 N MEAN CELL VOLUME (test code = 89 fL 81.7-96.1 N MCV) MEAN CELL HGB (test code = MCH) 28.9 pg 27.6-33.2 N MEAN CELL HGB CONCETRATION 32.4 % 32.9-35.5 L (test code = MCHC) RED CELL DISTRIBUTION WIDTH 13.8 % 12.1-15.2 N (test code = RDW) PLATELET COUNT (test code = 165 K/MM3 129-368 N PLT) MEAN PLATELET VOLUME (test code 13.3 fl 7.4-10.4 H = MPV) NEUTROPHIL % (test code = NT%) 70.5 % 43-75 N IMMATURE GRANULOCYTE % (test 0.4 % 0.0-2.0 N code = IG%) LYMPHOCYTE % (test code = LY%) 16.8 % 14-44 N MONOCYTE % (test code = MO%) 11.3 % 4-13 N EOSINOPHIL % (test code = EO%) 0.8 % 0-6 N BASOPHIL % (test code = BA%) 0.2 % 0-2 N NUCLEATED RBC % (test code = 0.0 % 0-1.0 N NRBC%) NEUTROPHIL # (test code = NT#) 6.04 K/mm3 2.0-7.6 N IMMATURE GRANULOCYTE # (test 0.03 x10 3/uL 0-0.03 N code = IG#) LYMPHOCYTE # (test code = LY#) 1.44 K/mm3 1.0-3.8 N MONOCYTE # (test code = MO#) 0.97 K/mm3 0.1-0.8 H EOSINOPHIL # (test code = EO#) 0.07 K/mm3 0.0-0.2 N BASOPHIL # (test code = BA#) 0.02 K/mm3 0.0-0.2 N NUCLEATED RBC # (test code = 0.00 K/mm3 0.0-0.1 N NRBC#) DIFFERENTIAL [id number] 21:52:00 Test Item Value Reference Range Interpretation Comments RBC MORPHOLOGY REQUIRED (test code = RBCM) PLATELET ESTIMATE (test code = PLTEST) ADEQUATE PLATELET MORPHOLOGY (test code = NORMAL PLTMORPH) CBC W/AUTO [id number] 21:52:00 Test Item Value Reference Range Interpretation Comments WHITE BLOOD CELL (test code = 8.6 K/MM3 3.8-9.8 N WBC) RED BLOOD CELL (test code = 4.50 M/MM3 3.95-5.67 N RBC) HEMOGLOBIN (test code = HGB) 13.0 G/DL 12.4-16.7 N HEMATOCRIT (test code = HCT) 40.1 % 35.9-49.5 N MEAN CELL VOLUME (test code = 89 fL 81.7-96.1 N MCV) MEAN CELL HGB (test code = MCH) 28.9 pg 27.6-33.2 N MEAN CELL HGB CONCETRATION 32.4 % 32.9-35.5 L (test code = MCHC) RED CELL DISTRIBUTION WIDTH 13.8 % 12.1-15.2 N (test code = RDW) PLATELET COUNT (test code = 165 K/MM3 129-368 N PLT) MEAN PLATELET VOLUME (test code 13.3 fl 7.4-10.4 H = MPV) NEUTROPHIL % (test code = NT%) 70.5 % 43-75 N IMMATURE GRANULOCYTE % (test 0.4 % 0.0-2.0 N code = IG%) LYMPHOCYTE % (test code = LY%) 16.8 % 14-44 N MONOCYTE % (test code = MO%) 11.3 % 4-13 N EOSINOPHIL % (test code = EO%) 0.8 % 0-6 N BASOPHIL % (test code = BA%) 0.2 % 0-2 N NUCLEATED RBC % (test code = 0.0 % 0-1.0 N NRBC%) NEUTROPHIL # (test code = NT#) 6.04 K/mm3 2.0-7.6 N IMMATURE GRANULOCYTE # (test 0.03 x10 3/uL 0-0.03 N code = IG#) LYMPHOCYTE # (test code = LY#) 1.44 K/mm3 1.0-3.8 N MONOCYTE # (test code = MO#) 0.97 K/mm3 0.1-0.8 H EOSINOPHIL # (test code = EO#) 0.07 K/mm3 0.0-0.2 N BASOPHIL # (test code = BA#) 0.02 K/mm3 0.0-0.2 N NUCLEATED RBC # (test code = 0.00 K/mm3 0.0-0.1 N NRBC#) DIFFERENTIAL [id number] 21:52:00 Test Item Value Reference Range Interpretation Comments RBC MORPHOLOGY REQUIRED (test code = RBCM) PLATELET ESTIMATE (test code = PLTEST) ADEQUATE PLATELET MORPHOLOGY (test code = NORMAL PLTMORPH)
[2022-03-07 12:45] LABS: Absolute Lymphocytes (CBC) 0.7 K/uL (0.7-4.9); Hematocrit 33.5 % (39.6-49.0); Lymphocytes % 20.3 % (15.3-44.8); MPV 12.1 fL (7.6-11.3); RBC Red Blood Cell Count 3.94 M/uL (4.33-5.43)
[2022-03-07 12:47] LABS: Protime INR 1.3
[2022-03-07 13:00] LABS: Bilirubin Total 0.5 mg/dL (0.2-1.0); Potassium 3.4 mmol/L (3.5-5.1)
[2022-03-07 13:01] LABS: Protein, Total 5.7 g/dL (6.4-8.2)
[2022-03-07 13:25] LABS: SARS-COV-2 RT PCR NEGATIVE (NEGATIVE)
--- NOTE | 2022-03-07 13:36 | RAD REPORT ---
EXAM DESCRIPTION: CT - Head Brain Wo Cont - 03/07/2022 1:23 pm CLINICAL HISTORY: syncope COMPARISON: 10/05/2014 TECHNIQUE: All CT scans are performed using dose optimization technique as appropriate and may inclu de automated exposure control or mA/KV adjustment according to patient size. FINDINGS: No intracranial hemorrhage, hydrocephalus or extra-axial fluid collection.No areas of brai n edema or evidence of midline shift. Chronic small vessel ischemic changes. The paranasal sinuses and mastoids are clear. The calvarium is intact. IMPRESSION: No acute intracranial abnormality.
--- NOTE | 2022-03-07 13:42 | RAD REPORT ---
EXAM DESCRIPTION: RAD - Chest Single View - 03/07/2022 1:11 pm CLINICAL HISTORY: COUGH COMPARISON: Chest Pa And Lat (2 Views) dated 02/01/2019; Chest Single View dated 07/20/2016; Chest Pa And Lat (2 Views) dated 03/24/2016; CHEST SINGLE VIEW dated 10/05/2014; Abdomen Pelvis W Contrast da haydee 03/07/2022 FINDINGS: Lines: None. Lungs: Decreased lung volumes with increased interstitial markings bilaterally cardiomegaly. Pleural: No significant pleural effusions or pneumothorax. Cardiac: The heart size is within normal limits. Mediastinum: Within normal limits. Bones: No acute fractures. Other: None IMPRESSION: Decreased lung volumes accentuates the pulmonary vasculature. No definite acute process.
--- NOTE | 2022-03-07 13:49 | RAD REPORT ---
EXAM DESCRIPTION: CTAbdomen Pelvis W Contrast - 03/07/2022 1:29 pm CLINICAL HISTORY: nausea, diarrhea, syncope COMPARISON: Head C Spine Cap W Con dated 07/20/2016 TECHNIQUE: CT of the abdomen and pelvis was performed. All CT scans are performed using dose optimization technique as appropriate and may include automated exposure control or mA/KV adjustment according to patient size. FINDINGS: Lower chest: 4 mm nodule in the right middle lobe. This is unchanged since 2017. Atelectas is. Cardiomegaly. Aortic valve calcifications. Coronary artery calcifications. Liver: No acute abnormality or suspicious lesions. Biliary: Cholelithiasis. Stomach: No significant focal abnormality. Duodenum: No significant focal abnormality. Pancreas: No significant abnormality. Spleen: No significant abnormality. Adrenal: No suspicious lesions. Kidney/ureter: No hydronephrosis. No renal calculi. Right lower pole renal scarring. Retroperitoneum: No retroperitoneal adenopathy. Vascular: No aneurysm. Atherosclerosis Bowel: No appendicitis. Mild diffuse colonic wall thickening with scattered air-fluid levels.. Peritoneum: No ascites or free air. Bladder: Grossly unremarkable. Reproductive: No adnexal masses. Bones: T7 and T12 compression fractures. T7 may be subacute and has approximately 60% loss of height anteriorly. Slight bony retropulsion. T12 is chronic. Other: n/a IMPRESSION: 1. Diffuse colonic wall thickening with scattered fluid levels likely reflecting a colit is. No bowel obstruction. 2. T7 compression fracture is new since 2017 and probably subacute.
--- NOTE | 2022-03-07 14:10 | ER ---
Nurse's Notes [facility] Name: Dionicio Cabrera Jr Age: 81 yrs Sex: Male : 1940 Arrival Date: 03/07/2022 Time: 12:14 Bed 18 Private MD: Diagnosis: Syncope;Infectious gastroenteritis and colitis, unspecified;Influenza due to identified novel influenza A virus Presentation: 03/07 12:12 Chief complaint: EMS states: syncopal episode last 2 minutes, witnessed by family. Pt eh3 was sitting at kitchen table, slouched down and went unresponsive, became alert again after 2 minutes and was extremely diaphoretic. Hypotensive with HR in 40s on EMS arrival. C/o of diarrhea, vomiting, and cough for last 3 days. Coronavirus screen: Vaccine status: Patient reports receiving the 2nd dose of the covid vaccine. Ebola Screen: No symptoms or risks identified at this time. Initial Sepsis Screen: Does the patient meet any 2 criteria? No. Patient's initial sepsis screen is negative. Does the patient have a suspected source of infection? Yes: Productive cough/pneumonia. Risk Assessment: Do you want to hurt yourself or someone else? Patient reports no desire to harm self or others. Onset of symptoms was March 07, 2022. 12:12 Method Of Arrival: EMS: [facility] [place]3 12:12 Acuity: NEELA 2 3 12:12 Care prior to arrival: Medication(s) given: Normal saline infusion, 500 mL. 3 Triage Assessment: 12:12 General: Appears in no apparent distress. uncomfortable, Behavior is calm, cooperative, eh3 appropriate for age. Pain: Denies pain. EENT: No deficits noted. Neuro: Level of Consciousness is awake, alert, obeys commands, Oriented to person, place, time, situation. Cardiovascular: Capillary refill < 3 seconds Patient's skin is warm and dry. Respiratory: Airway is patent Respiratory effort is even, unlabored, Respiratory pattern is regular, symmetrical, Breath sounds are diminished bilaterally. Respiratory: Reports cough that is productive. GI: Abdomen is flat, non-distended, Reports diarrhea, vomiting. : No signs and/or symptoms were reported regarding the genitourinary system. Derm: No signs and/or symptoms reported regarding the dermatologic system. Musculoskeletal: No signs and/or symptoms reported regarding the musculoskeletal system. Circulation, motion, and sensation intact. Range of motion: intact in all extremities. Historical: - Allergies: 12:43 No Known Allergies; eh3 - Home Meds: 17:13 alendronate 70 mg Oral tab 1 tab once wkly [Active]; aspirin 81 mg Oral chew 2 tabs eh3 once daily [Active]; atorvastatin 40 mg Oral tab 1 tab once daily [Active]; cyclobenzaprine 10 mg Oral tab 1 tab 3 times per day [Active]; Fish Oil Oral [Active]; hydralazine 10 mg Oral tab three times a day [Active]; leflunomide 20 mg Oral tab 1 tab once daily [Active]; meclizine 25 mg Oral tab 1 tab 4 times per day [Active]; metoprolol tartrate 50 mg Oral tab [Active]; omeprazole 40 mg Oral cpDR 1 cap once daily [Active]; Os-Vasquez 500 + D3 Oral [Active]; tamsulosin 0.4 mg Oral cp24 1 cap once daily [Active]; topiramate 25 mg Oral CSpX 1 cap once daily [Active]; tramadol 50 mg Oral tab [Active]; Vitamin B-6 100 mg Oral tab [Active]; - PMHx: 12:43 GERD; Headaches; Hypertension; Osteoporosis; eh3 - Immunization history:: Adult Immunizations up to date. - Social history:: Smoking status: Patient denies any tobacco usage or history of. Patient/guardian denies using alcohol. - Family history:: not pertinent. - Hospitalizations: : No recent hospitalization is reported. Screenin:15 [facility] ED Fall Risk Assessment (Adult) History of falling in the last 3 months, eh3 including since admission Yes- physiologic fall (2 pts) Confusion or Disorientation No (0 pts) Intoxicated or Sedated No (0 pts) Impaired Gait Yes (1 pt) Mobility Assist Device Used No (0 pt) Altered Elimination No (0 pt) Score/Fall Risk Level 3 or more points = High Risk Oriented to surroundings, Maintained a safe environment, Educated pt \T\ family on fall prevention, incl call for assistance when getting out of bed, Assessed \T\ reinforced patient's understanding of fall precautions, Provided non-skid footwear, Hourly rounding (assess needs \T\ fall precautionary measures) done, Utilized family, sitter, or virtual toll bridge operator as indicated. 17:13 Abuse screen: Denies threats or abuse. Denies injuries from another. Nutritional eh3 screening: No deficits noted. Tuberculosis screening: No symptoms or risk factors identified. Assessment: 12:15 Reassessment: No changes from previously documented assessment. See triage assessment. eh3 13:15 Reassessment: Patient appears in no apparent distress at this time. Patient and/or eh3 family updated on plan of care and expected duration. Pain level reassessed. Patient is alert, oriented x 3, equal unlabored respirations, skin warm/dry/pink. Vital Signs: 12:12 BP 132 / 61; Pulse 55; Resp 18; Temp 98.8(O); Pulse Ox 96% on 2 lpm NC; Weight 83.91 eh3 kg; Height 5 ft. 11 in. (180.34 cm); 12:39 BP 131 / 64; Pulse 54; Resp 18; Temp 98.9(O); Pulse Ox 98% on 2 lpm NC; Weight 81.65 mm9 kg; Height 5 ft. 8 in. (172.72 cm); 13:15 BP 131 / 64; Pulse 55; Resp 17; Pulse Ox 98% on R/A; eh3 16:31 BP 141 / 63; Pulse 61; Resp 19; Temp 98.6; Pulse Ox 96% on R/A; jl7 12:39 Body Mass Index 27.37 (81.65 kg, 172.72 cm) mm9 ED Course: 12:12 Arm band placed on. eh3 12:14 Patient arrived in ED. eb 12:14 Fidel Burr MD is Attending Physician. rn 12:34 COVID-19/FLU A+B Sent. mm9 12:35 CBC with Diff Sent. mm9 12:35 Blood Culture Adult (2) Sent. mm9 12:35 CMP Sent. mm9 12:35 Lactate w/ 2H reflex if indic. Sent. mm9 12:35 Protime (+inr) Sent. mm9 12:35 Ptt, Activated Sent. mm9 12:37 Lisa Cunningham, BENEDICT is Primary Nurse. eh3 12:38 Initial lab(s) drawn, by ED staff, sent to lab. COVID swab sent to lab. Flu and/or RSV mm9 swab sent to lab. 12:38 Patient has correct armband on for positive identification. Placed in gown. Bed in low mm9 position. Call light in reach. Side rails up X2. Adult w/ patient. Warm blanket given. staff technologist on. Pulse ox on. NIBP on. 12:43 Triage completed. eh3 13:01 EKG done, by ED staff, reviewed by Fidel Burr MD. mm9 13:13 Chest Single View XRAY In Process Unspecified. EDMS 13:25 Head Brain Wo Cont In Process Unspecified. EDMS 13:31 Abdomen In Process Unspecified. EDMS 14:08 Jaya Stratton is Hospitalizing Provider. rn 16:58 Second set of blood cultures drawn by sc, Urine collected: clean catch specimen, clear. jl7 17:14 No provider procedures requiring assistance completed. Patient admitted, IV remains in eh3 place. Administered Medications: 13:40 Drug: NS 0.9% 1000 ml Route: IV; Rate: 1000 ml; Site: right antecubital; eh3 17:13 Follow up: IV Status: Completed infusion; IV Intake: 1000ml eh3 14:32 Drug: Cipro (ciprofloxacin) 400 mg Volume: 200 ml; Route: IVPB; Infused Over: 60 mins; eh3 Site: right antecubital; 17:13 Follow up: Response: No adverse reaction; IV Status: Completed infusion; IV Intake: eh3 200ml 14:32 Drug: Flagyl (metroNIDAZOLE) 500 mg Volume: 100 ml; Route: IVPB; Rate: 200 ml/hr; eh3 Infused Over: 30 mins; Site: right antecubital; 17:12 Follow up: Response: No adverse reaction; IV Status: Completed infusion; IV Intake: eh3 100ml 14:32 Drug: Tamiflu (oseltamivir) 75 mg Route: PO; eh3 17:12 Follow up: Response: No adverse reaction 3 Medication: 17:14 VIS not applicable for this client. eh3 Intake: 17:12 IV: 100ml; Total: 100ml. eh3 17:13 IV: 200ml; Total: 300ml. eh3 17:13 IV: 1000ml; Total: 1300ml. 3 Outcome: 14:09 Decision to Hospitalize by Provider. rn 17:14 Admitted to Tele accompanied by tech, via wheelchair, room 404, with chart. 3 17:14 Condition: stable 17:14 Instructed on the need for admit. 17:15 Patient left the ED. 3 Signatures: Dispatcher [employer] EDFidel Wong MD MD rn Leal, Jahala, RN RN jl7 Angely Chamorro Erin, RN RN 3 Mona Braswell mm9 Corrections: (The following items were deleted from the chart) 17:32 16:31 BP 141 / 63; Pulse 61bpm; Resp 19bpm; Pulse Ox 96%; Temp 98.6F; eh3 [id number]
--- NOTE | 2022-03-07 14:10 | EDPHYS ---
Physician Documentation [facility] Name: Dionicio Cabrera Jr Age: 81 yrs Sex: Male : 1940 Arrival Date: 03/07/2022 Time: 12:14 Bed 18 Private MD: ED Physician Fidel Burr HPI: 03/07 12:15 This 81 yrs old Male presents to ER via Unassigned with complaints of syncope. rn 12:15 The patient has experienced syncope, became unresponsive, collapsed. Onset: The rn symptoms/episode began/occurred just prior to arrival. Duration: This was a single episode. Associated injury: The patient did not suffer any apparent associated injury. Current symptoms: decreased level of consciousness. The patient has not experienced similar symptoms in the past. The patient has not recently seen a physician. EMS reports called out for syncope, single episode, at rest while sitting. Patient reports a couple of days of nausea, decreased appetite, cough, and diarrhea. Pt denies pain currently. . Historical: - Allergies: 12:43 No Known Allergies; eh3 - Home Meds: 17:13 alendronate 70 mg Oral tab 1 tab once wkly [Active]; aspirin 81 mg Oral chew 2 tabs eh3 once daily [Active]; atorvastatin 40 mg Oral tab 1 tab once daily [Active]; cyclobenzaprine 10 mg Oral tab 1 tab 3 times per day [Active]; Fish Oil Oral [Active]; hydralazine 10 mg Oral tab three times a day [Active]; leflunomide 20 mg Oral tab 1 tab once daily [Active]; meclizine 25 mg Oral tab 1 tab 4 times per day [Active]; metoprolol tartrate 50 mg Oral tab [Active]; omeprazole 40 mg Oral cpDR 1 cap once daily [Active]; Os-Vasquez 500 + D3 Oral [Active]; tamsulosin 0.4 mg Oral cp24 1 cap once daily [Active]; topiramate 25 mg Oral CSpX 1 cap once daily [Active]; tramadol 50 mg Oral tab [Active]; Vitamin B-6 100 mg Oral tab [Active]; - PMHx: 12:43 GERD; Headaches; Hypertension; Osteoporosis; eh3 - Immunization history:: Adult Immunizations up to date. - Social history:: Smoking status: Patient denies any tobacco usage or history of. Patient/guardian denies using alcohol. - Family history:: not pertinent. - Hospitalizations: : No recent hospitalization is reported. ROS: 12:20 Constitutional: Negative for fever, chills, and weight loss, Eyes: Negative for injury, rn pain, redness, and discharge, Neck: Negative for injury, pain, and swelling, Cardiovascular: Negative for chest pain, palpitations, and edema, Respiratory: + cough Abdomen/GI: + nausea/diarrhea Back: Negative for injury and pain, MS/Extremity: Negative for injury and deformity, Skin: Negative for injury, rash, and discoloration, Neuro: Negative for numbness, tingling, and seizure. Exam: 12:20 Constitutional: This is a well developed, well nourished patient who is awake, alert, rn and in no acute distress. Head/Face: Normocephalic, atraumatic. ENT: dry MM Cardiovascular: Tachycardic, regular. No pulse deficits. Respiratory: Diminished breath sounds at bases. No retractions. Abdomen/GI: Soft, non-tender, non-distended Skin: Warm, dry MS/ Extremity: Pulses equal, no cyanosis Neuro: Awake and alert, GCS 15, oriented to person, place, and situation. Cranial nerves II-XII grossly intact. Motor strength 4/5 in all extremities. Sensory grossly intact. 13:03 ECG was reviewed by the Attending Physician. rn Vital Signs: 12:12 BP 132 / 61; Pulse 55; Resp 18; Temp 98.8(O); Pulse Ox 96% on 2 lpm NC; Weight 83.91 eh3 kg; Height 5 ft. 11 in. (180.34 cm); 12:39 BP 131 / 64; Pulse 54; Resp 18; Temp 98.9(O); Pulse Ox 98% on 2 lpm NC; Weight 81.65 mm9 kg; Height 5 ft. 8 in. (172.72 cm); 13:15 BP 131 / 64; Pulse 55; Resp 17; Pulse Ox 98% on R/A; eh3 16:31 BP 141 / 63; Pulse 61; Resp 19; Temp 98.6; Pulse Ox 96% on R/A; jl7 12:39 Body Mass Index 27.37 (81.65 kg, 172.72 cm) mm9 MDM: 12:14 Patient medically screened. rn 14:07 Differential Diagnosis: cardiac arrhythmia, GI bleed, idiopathic syncope, vasovagal rn episode, covid, flu, colitis, enteritis. Data reviewed: vital signs, nurses notes, lab test result(s), EKG, radiologic studies, CT scan, and as a result, I will admit patient. Counseling: I had a detailed discussion with the patient and/or guardian regarding: the historical points, exam findings, and any diagnostic results supporting the discharge/admit diagnosis, lab results, radiology results, the need for further work-up and treatment in the hospital. Response to treatment: the patient's symptoms have mildly improved after treatment, and as a result, I will admit patient. Admission orders: after a detailed discussion of the patient's condition and case, the admit orders are written by me. 03/07 12:18 Order name: Blood Culture Adult (2) 03/07 12:18 Order name: CBC with Diff 03/07 12:18 Order name: CMP; Complete Time: 13:21 03/07 12:18 Order name: Lactate w/ 2H reflex if indic.; Complete Time: 13:21 03/07 12:18 Order name: Protime (+inr); Complete Time: 13:21 03/07 12:18 Order name: Ptt, Activated; Complete Time: 13:21 03/07 12:18 Order name: Urine Culture 03/07 12:18 Order name: Urine Microscopic Only 03/07 12:18 Order name: Chest Single View XRAY; Complete Time: 13:44 03/07 12:18 Order name: COVID-19/FLU A+B; Complete Time: 13:44 rn 03/07 13:10 Order name: Manual Differential EDPR 03/07 13:27 Order name: Glucose, Ancillary Testing; Complete Time: 13:44 EDPR 03/07 14:56 Order name: Stool Culture rn 03/07 17:07 Order name: Urine Dipstick-Ancillary EDPR 03/07 12:18 Order name: EKG; Complete Time: 12:19 rn 03/07 12:18 Order name: Accucheck; Complete Time: 13:17 rn 03/07 12:18 Order name: Cardiac monitoring; Complete Time: 12:34 rn 03/07 12:18 Order name: EKG - Nurse/Tech; Complete Time: 12:34 rn 03/07 12:18 Order name: IV Saline Lock - Large Bore; Complete Time: 12:34 rn 03/07 12:18 Order name: Labs collected and sent; Complete Time: 12:34 rn 03/07 12:18 Order name: O2 Per Protocol; Complete Time: 12:34 rn 03/07 12:18 Order name: O2 Sat Monitoring; Complete Time: 12:34 rn 03/07 12:18 Order name: CT Abd/Pelvis - IV Contrast Only rn 03/07 12:19 Order name: CT Head Brain wo Cont rn 03/07 12:22 Order name: Abdomen ; Complete Time: 14:03 EDMS 03/07 12:24 Order name: Head Brain Wo Cont; Complete Time: 13:44 EDMS 03/07 12:18 Order name: Vital Signs; Complete Time: 12:47 rn EC:03 Rate is 57 beats/min. Rhythm is regular. QRS [place] is Normal. [place] interval is normal. QRS rn interval is normal. QT interval is normal. No Q waves. T waves are Inverted in leads V3, V4. No ST changes noted. Clinical impression: Sinus bradycardia. Interpreted by me. Reviewed by me. Administered Medications: 13:40 Drug: NS 0.9% 1000 ml Route: IV; Rate: 1000 ml; Site: right antecubital; 3 17:13 Follow up: IV Status: Completed infusion; IV Intake: 1000ml eh3 14:32 Drug: Cipro (ciprofloxacin) 400 mg Volume: 200 ml; Route: IVPB; Infused Over: 60 mins; eh3 Site: right antecubital; 17:13 Follow up: Response: No adverse reaction; IV Status: Completed infusion; IV Intake: eh3 200ml 14:32 Drug: Flagyl (metroNIDAZOLE) 500 mg Volume: 100 ml; Route: IVPB; Rate: 200 ml/hr; eh3 Infused Over: 30 mins; Site: right antecubital; 17:12 Follow up: Response: No adverse reaction; IV Status: Completed infusion; IV Intake: eh3 100ml 14:32 Drug: Tamiflu (oseltamivir) 75 mg Route: PO; eh3 17:12 Follow up: Response: No adverse reaction eh3 Disposition Summary: 03/07/22 14:09 Hospitalization Ordered Hospitalization Status: Observation rn Provider: Baidoo, Jaya rn Location: Telemetry/MedSurg (Inpatient) rn Condition: Stable rn Problem: new rn Symptoms: have improved rn Bed/Room Type: Standard rn Room Assignment: 404(03/07/22 16:18) dw Diagnosis - Syncope rn - Infectious gastroenteritis and colitis, unspecified rn - Influenza due to identified novel influenza A virus rn Forms: - Medication Reconciliation Form rn - SBAR form rn Signatures: Dispatcher [employer] Theodora Caldwell RN Fidel Gomes MD MD rn Hall, Erin, RN RN 3 Corrections: (The following items were deleted from the chart) 16:08 14:09 rn dw 16:18 16:08 204 dw dw
[2022-03-07] MEDS ORDERED: CIPROFLOXACIN 400mg IV 400 MG/200 ML BAG IV ONE (14:22)
[2022-03-07] MEDS ORDERED: OSELTAMIVIR 75 MG CAP PO ONE (14:22)
[2022-03-07] MEDS ORDERED: METRONIDAZOLE 500mg IVPB 500 MG/100 ML BAG IV ONE ×2 (14:23→23:03)
[2022-03-07] MEDS ORDERED: NA CHLORIDE 0.9% 1,000 ML IV SCH (17:00)
[2022-03-07 17:06] LABS: Urine Blood Negative (Negative); Urine Glucose Negative (Negative); Urine Protein Negative (Negative); Urine pH 5.5 (5.0-7.0)
--- NOTE | 2022-03-07 17:10 | P.HP ---
Certification for Inpatient Patient admitted to: Observation With expected LOS: <2 Midnights Patient will require the following post-hospital care: None Practitioner: I am a practitioner with admitting privileges, knowledge of patient current condition, hospital course, and medical plan of care. Services: Services provided to patient in accordance with Admission requirements found in Title 42 Section 412.3 of the Code of Federal Regulations Patient History Date of Service: 03/07/22 Primary Care Provider: unknown Reason for admission: Syncope/Colitis/Flu History of Present Illness: This is a 81 year old male with unknown PMH who was brought in by his family members for a syncopal episode with no obvious injuries. Patient was evaluated at the bedside but unable to obtain history due to patients confusion. Patient tested positive for the flu while in the ED and was place on isolation. Chest x- ray and head CT were negative for any acute findings. CT of abdomen was positive for colitis. Patient will be admitted to the hospital under the care of Dr. Stratton. ID will be consulted Allergies No Known Drug Allergies Allergy (Verified 04/30/16 06:50) Unknown Home Medications: Alendronate Sodium 70 mg PO EVERY 7TH DAY 04/29/16 Aspirin [Aspirin EC 81 MG] 2 tab PO DAILY 04/29/16 Atorvastatin Calcium [Lipitor] 40 mg PO BEDTIME 04/29/16 Calcium Carbonate [Oscal] 1,500 mg PO DAILY 04/29/16 Cyclobenzaprine [Flexeril] 10 mg PO DAILYPRN PRN 04/29/16 Docosahexanoic AC/Epa [Fish Oil 1,000 MG CAP] 1,000 mg PO DAILY 04/29/16 Hydralazine HCl 25 mg PO BID 04/29/16 Leflunomide [Arava] 20 mg PO DAILY 04/29/16 Meclizine HCl 25 mg PO QIDP PRN 04/29/16 Metoprolol Tartrate [Lopressor] 75 mg PO BID 04/29/16 Omeprazole [Prilosec] 40 mg PO DAILY 04/29/16 Pyridoxine [Vitamin B-6] 100 mg PO DAILY 04/29/16 Tamsulosin [Flomax] 0.4 mg PO BEDTIME 04/29/16 Topiramate [Trokendi Xr] 25 mg PO BEDTIME PRN PRN 04/29/16 Tramadol HCl [Ultram] 50 mg PO BID 04/29/16 Turmeric/Turmeric Root Extract [Turmeric] 500 mg PO DAILY 04/29/16 methylPREDNISolone [Medrol] 4 mg PO DAILY 04/29/16 - Past Medical/Surgical History Past Medical History: Unable to obtain Past Surgical History: Unable to obtain - Family History Family History: Reviewed- Non-Contributory - Social History Smoking Status: Unknown if ever smoked Place of Residence: Home Review of Systems is unable to be obtained Physical Examination - Vital Signs Temperature: 98.9 F Blood Pressure: 131/64 Pulse: 55 Respirations: 17 Pulse Ox (%): 98 - Physical Exam General: Confused HEENT: Atraumatic, Normocephalic Neck: Supple, 2+ carotid pulse no bruit Respiratory: Diminished Cardiovascular: Edema Capillary refill: <2 Seconds Gastrointestinal: Normal bowel sounds Musculoskeletal: Swelling Integumentary: Warmth Neurological: Normal tone, Sensation intact Lymphatics: No axilla or inguinal lymphadenopathy - Studies Laboratory Data (last 24 hrs) 03/07/22 12:25: PT 14.3 H, INR 1.30, APTT 32.3 03/07/22 12:25: Sodium 136, Potassium 3.4 L, BUN 22 H, Creatinine 0.89, Glucose 100, Total Bilirubin 0.5, AST 52 H, ALT 31, Alkaline Phosphatase 54 03/07/22 12:25: WBC 3.40 L, Hgb 11.0 L, Hct 33.5 L, Plt Count 89 L Assessment and Plan - Plan Assessment Flu Syncope Colitis Plan Flu -Continue droplet isolation -Encourage fluids Syncope -Head CT negative for any acute findings -CT abdomen/Pelvis- T7 compression fracture is new since 2017 and probably subacute. -Continue neuro checks/bedrest -Serial troponins, CPK rule out rhabdo -IV fluids Colitis -CT abdomen/pelvis - Diffuse colonic wall thickening with scattered fluid levels likely reflecting a colitis. No bowel obstruction - T7 compression fracture is new since 2017 and probably subacute -Continue antibitiocs -Keep NPO, IV fluid NS @ 75 ml/hr -ID consulted, recommendations appreciated PPX- Lovenox, PPI Code status- Full code Discharge Plan: Home Plan to discharge in: 48 Hours - Advance Directives Does patient have a Living Will: No Does patient have a Durable POA for Healthcare: No - Code Status/Comfort Care Code Status Assessed: Yes (full code) Critical Care: No Time Spent Managing Pts Care (In Minutes): 50
[2022-03-07 17:25] LABS: Urine Bacteria <20 /HPF (<20); Urine Mucus Slight /HPF (None Seen); Urine RBC <5 /HPF (None Seen)
[2022-03-07 17:39] VITALS: BMI 27.3
[2022-03-07] MEDS: METRONIDAZOLE 250mg IVPB 250 MG/50 ML BAG IV SCH ×2 (17:42→23:06)
[2022-03-07 18:30] LABS: Blood Morphology Comment NOT SEEN (NOT SEEN); Platelet Estimate ADEQ
[2022-03-07] MEDS ORDERED: D5NS KCL 20MEQ 20 MEQ/1,000 ML BAG IV SCH (19:00)
[2022-03-07] MEDS: D5NS KCL 20MEQ 20 MEQ/1,000 ML BAG IV SCH (20:30)
[2022-03-07] MEDS: Ciprofloxacin 200mg IV 200 MG/100 ML IV.SOLN. IV SCH (20:31)
[2022-03-07] MEDS: OSELTAMIVIR 75 MG CAP PO SCH (20:31)
[2022-03-07 21:49] LABS: Specific Gravity > 1.030 (1.005-1.030); Urine Bilirubin NEGATIVE (Negative); Urine Blood Negative (Negative); Urine Clarity Clear (Clear); Urine Color Light-Yellow (Yellow); Urine Glucose NEGATIVE (Negative); Urine Protein NEGATIVE (Negative); Urine Urobilinogen Normal (Normal)
[2022-03-07] MEDS ORDERED: BENZONATATE 100 MG CAP PO PRN (23:38)
[2022-03-08 04:47] LABS: Magnesium 1.9 mg/dL (1.6-2.4); Phosphorus 2.4 mg/dL (2.5-4.9); Potassium 3.2 mmol/L (3.5-5.1)
[2022-03-08 04:49] LABS: Absolute Lymphocytes (CBC) 0.5 K/uL (0.7-4.9); Hematocrit 32.4 % (39.6-49.0); Lymphocytes % 18.1 % (15.3-44.8); MCV 83.2 fL (80-100); MPV 12.5 fL (7.6-11.3)
[2022-03-08] MEDS ORDERED: METRONIDAZOLE 500mg IVPB 500 MG/100 ML BAG IV ONE (05:05)
[2022-03-08] MEDS: METRONIDAZOLE 250mg IVPB 250 MG/50 ML BAG IV SCH ×3 (06:00→17:18)
[2022-03-08] MEDS: D5NS KCL 20MEQ 20 MEQ/1,000 ML BAG IV SCH ×3 (07:00→20:58)
[2022-03-08] MEDS: HOME MED 1 EA UNK (Leflunomide [Arava] 20 MG Tablet) PO SCH (09:00)
[2022-03-08] MEDS ORDERED: ENOXAPARIN 40 MG/0.4 ML SQ SCH (09:00)
[2022-03-08] MEDS ORDERED: POTASSIUM PHOS IN 0.9 % NACL 15 MMOL/250 ML BAG IV ONE (09:00)
[2022-03-08] MEDS ORDERED: HOME MED 1 EA UNK (Omeprazole [Prilosec] 40 MG Capsule.Dr) PO SCH (09:00)
[2022-03-08] MEDS: PANTOPRAZOLE 40MG TABLET PO SCH (09:47)
[2022-03-08] MEDS: HYDRALAZINE HCL 25 MG TABLET PO SCH ×2 (09:47→21:01)
[2022-03-08] MEDS: Ciprofloxacin 200mg IV 200 MG/100 ML IV.SOLN. IV SCH ×2 (09:47→20:58)
[2022-03-08] MEDS: OSELTAMIVIR 75 MG CAP PO SCH ×2 (09:47→21:00)
[2022-03-08] MEDS ORDERED: TOPIRAMATE 25 MG PO PRN (15:36)
--- NOTE | 2022-03-08 15:40 | P.PN ---
Subjective Date of Service: 03/08/22 Primary Care Provider: unknown Chief Complaint: Syncope/Colitis/Flu Patient is currently awake and alert. No issues overnight. Patient currently denies abdominal pain. He had diarrhea yesterday, none today. Physical Examination - Vital Signs Temperature: 98.8 F Blood Pressure: 171/83 Pulse: 63 Respirations: 18 Pulse Ox (%): 96 - Physical Exam General: Alert, In no apparent distress HEENT: Mucous membr. moist/pink, Sclerae nonicteric Neck: JVD not distended Respiratory: Clear to auscultation bilaterally, Normal air movement Cardiovascular: No edema, Regular rate/rhythm, Normal S1 S2 Gastrointestinal: Soft and benign, Non-distended, No tenderness Musculoskeletal: No swelling Integumentary: No rashes, No cyanosis Neurological: Normal strength at 5/5 x4 extr Assessment And Plan - Current Problems (Diagnosis) (1) Near syncope Current Visit: Yes Status: Acute (2) Acute colitis Current Visit: Yes Status: Acute (3) Essential hypertension Current Visit: Yes Status: Acute (4) Influenza A Current Visit: Yes Status: Acute (5) Fracture, thoracic vertebra, compression Current Visit: Yes Status: Acute Qualifiers: Thoracic vertebra fracture level: T7 - Plan Continue supportive measures with IV hydration. Troponin trended negative. No ACS. Obtain echocardiogram to further evaluate near syncope. Continue antibiotics for acute colitis. Start clear liquid diet. Continue Tamiflu for influenza. PT consult. Resume home antihypertensives and other home medications.
[2022-03-08] MEDS: METOPROLOL TAR 50 MG TAB PO SCH ×2 (15:49→21:00)
[2022-03-08] MEDS: TRAMADOL HCL 50 MG TAB PO SCH (20:59)
[2022-03-08] MEDS: TAMSULOSIN 0.4 MG SR CAP PO SCH (20:59)
[2022-03-08] MEDS: ATORVASTATIN 40 MG TAB PO SCH (21:01)
[2022-03-09] MEDS: METRONIDAZOLE 250mg IVPB 250 MG/50 ML BAG IV SCH ×2 (00:52→05:39)
[2022-03-09 03:46] LABS: Absolute Lymphocytes (CBC) 0.7 K/uL (0.7-4.9); Hematocrit 33.5 % (39.6-49.0); Lymphocytes % 39.4 % (15.3-44.8); MCV 83.2 fL (80-100); MPV 11.5 fL (7.6-11.3); RBC Red Blood Cell Count 4.02 M/uL (4.33-5.43)
[2022-03-09 04:04] LABS: Magnesium 1.9 mg/dL (1.6-2.4); Phosphorus 2.8 mg/dL (2.5-4.9); Potassium 3.2 mmol/L (3.5-5.1)
[2022-03-09] MEDS ORDERED: METRONIDAZOLE 500mg IVPB 500 MG/100 ML BAG IV ONE (05:08)
[2022-03-09] MEDS: OSELTAMIVIR 75 MG CAP PO SCH ×2 (08:35→20:53)
[2022-03-09] MEDS: VALSARTAN 160 MG TAB PO SCH (08:35)
[2022-03-09] MEDS: HYDRALAZINE HCL 25 MG TABLET PO SCH ×2 (08:35→20:53)
[2022-03-09] MEDS: PANTOPRAZOLE 40MG TABLET PO SCH (08:35)
[2022-03-09] MEDS: CALCIUM CARBONATE 500 MG TAB PO SCH (08:35)
[2022-03-09] MEDS: ASPIRIN EC 81 MG TAB PO SCH (08:36)
[2022-03-09] MEDS: HOME MED 1 EA UNK (Leflunomide [Arava] 20 MG Tablet) PO SCH (08:36)
[2022-03-09] MEDS: METOPROLOL TAR 50 MG TAB PO SCH ×3 (08:36→20:54)
[2022-03-09] MEDS: PYRIDOXINE (VIT B6) 50 MG TAB PO SCH (08:36)
[2022-03-09] MEDS: TRAMADOL HCL 50 MG TAB PO SCH ×2 (08:36→20:53)
[2022-03-09] MEDS ORDERED: POTASSIUM CL SA 10 MEQ TAB PO ONE (09:00)
[2022-03-09] MEDS ORDERED: HOME MED 1 EA UNK (Olmesartan Medoxomil [Olmesartan Medoxomil] 40 MG Tablet) PO SCH (09:00)
[2022-03-09] MEDS: Ciprofloxacin 200mg IV 200 MG/100 ML IV.SOLN. IV SCH (09:00)
[2022-03-09] MEDS: CIPROFLOXACIN 400mg IV 400 MG/200 ML BAG IV SCH ×2 (10:12→20:54)
[2022-03-09] MEDS: METRONIDAZOLE 500mg IVPB 500 MG/100 ML BAG IV SCH ×2 (10:13→17:21)
[2022-03-09] MEDS: D5NS KCL 20MEQ 20 MEQ/1,000 ML BAG IV SCH ×2 (13:00→20:54)
--- NOTE | 2022-03-09 13:11 | CON ---
History Of Present Illness: This is a 81-year-old male. I was consulted for evaluation of colitis. The patient was brought on March [address] scan of his abdomen showed the patient has diffuse colonic wall thickening with scattered fluid levels, likely reflecting colitis, no bowel obstruction , T7 compression fracture from 2017, all new. The patient is currently being treated with Cipro, Fla gyl, and Tamiflu for influenza infection. The patient was brought in because of syncopal episode. N o obvious injury. The patient is tolerating medications well. Denies any other problems. Past Medical History: Hypercholesterolemia, hypertension, benign prostatic hypertrophy. Social History: Nonsmoker, nondrinker. Family History: Noncontributory. Medications: Cipro, Flagyl, Tamiflu. See MAR for other medications. Allergies: NO KNOWN DRUG ALLERGIES. Review of Systems: A 10-point review was performed. Physical Examination: General: This is a 81-year-old male, lying in bed, not in any acute cardiopulmonary distress. Vital Signs: Temperature 97.4, pulse 58, respirations 18, blood pressure 147/70. HEENT: Unremarkable. Neck: Supple. Lungs: Basal crackles. Heart: S1, S2. Regular. Abdomen: Soft. Bowel sounds present. Tenderness in lower quadrants noted. Extremity: No edema. Laboratory Data: Shows WBC 1.7, hemoglobin 11.2, platelets are 91. Chemistry shows BUN of 6, creati nine 0.6, albumin level of 3. Micro data; blood cultures are negative to date. Urine cultures negat priti to date. Stool culture is pending. Serology shows influenza A positive. Urinalysis is negative for any WBC count. Assessment And Plan: A 81-year-old male, coming in with syncope and CT scan shows the patient has co litis, currently being treated empirically with Cipro and Flagyl. The patient was also found to have influenza and is being treated with Tamiflu. Currently pancytopenic, monitor for signs of neutropen ia. If neutrophil count goes below 500, please put the patient on reverse isolation, monitor culture report. If the patient spikes, we will repeat cultures. Prognosis is guarded. We will follow the patient closely. Thank you, Dr. Stratton for consult. NF/MODL Voice ID: [id number] Report ID: [id number]
--- NOTE | 2022-03-09 16:34 | P.PN ---
Subjective Date of Service: 03/09/22 Primary Care Provider: unknown Chief Complaint: Syncope/Colitis/Flu Patient is more alert today. He denies any complaint. He denies any diarrhea or abdominal pain. He was seen sitting on the edge of the bed. Physical Examination - Vital Signs Temperature: 97.9 F Blood Pressure: 185/81 Pulse: 54 Respirations: 16 Pulse Ox (%): 95 - Physical Exam General: Alert, In no apparent distress HEENT: Mucous membr. moist/pink Neck: JVD not distended Respiratory: Clear to auscultation bilaterally, Normal air movement Cardiovascular: Regular rate/rhythm, Normal S1 S2, Edema (Bilateral lower extremity) Gastrointestinal: Normal bowel sounds, Soft and benign, Non-distended, No tenderness Musculoskeletal: Swelling (Bilateral legs) Integumentary: No cyanosis Neurological: Other (No focal motor deficit) Lymphatics: Other (Bilateral lower extremity lymphedema) Assessment And Plan - Current Problems (Diagnosis) (1) Near syncope Current Visit: Yes Status: Acute (2) Acute colitis Current Visit: Yes Status: Acute (3) Essential hypertension Current Visit: Yes Status: Acute (4) Influenza A Current Visit: Yes Status: Acute (5) Fracture, thoracic vertebra, compression Current Visit: Yes Status: Acute Qualifiers: Thoracic vertebra fracture level: T7 - Plan Continue supportive measures with IV hydration. Troponin trended negative. No ACS. Echocardiogram is pending. Continue antibiotics for acute colitis. Infectious disease input appreciated. Pancytopenia noted. Continue to monitor CBC Advance diet as tolerated Continue Tamiflu for influenza. PT consult. Count home antihypertensives and other home medications.
--- NOTE | 2022-03-09 19:48 | P.DS ---
Admission Date: 03/07/22 Discharge Date: 03/09/22 Primary Care Provider: unknown Disposition: ROUTINE DISCHARGE Discharge Condition: FAIR Reason for Admission: Syncope/Colitis/Flu - Problems (1) Near syncope Current Visit: Yes Status: Acute (2) Acute colitis Current Visit: Yes Status: Acute (3) Essential hypertension Current Visit: Yes Status: Acute (4) Influenza A Current Visit: Yes Status: Acute (5) Fracture, thoracic vertebra, compression Current Visit: Yes Status: Acute Qualifiers: Thoracic vertebra fracture level: T7 (6) Pancytopenia Current Visit: Yes Status: Acute Brief History of Present Illness: 81 year old male with a history of hypertension and BPH was brought in by his family members for a syncopal episode witnessed by the family. Family reported patient had a transient blank stare and was not responding to verbal for about 2 minutes while seated in a chair. Symptoms were preceded by labs watery bowel movement according to family. Patient tested positive for the flu while in the ED. Chest x-ray and head CT were negative for any acute findings. CT of abdomen was positive for colitis. Patient was admitted for further management. Hospital Course: Patient admitted to the medical floor and treated with IV ciprofloxacin and Flagyl for colitis and Tamiflu for influenza. He was also hydrated with IV fluid. Patient was somehow lethargic on presentation but this improved with supportive measures. He became more alert, ambulated and had good oral intake. No UTI, blood cultures yielded no growth. He was seen and evaluated by infectious disease. Noted patient developed pancytopenia, he had no fever, WBC count and platelet counts were stable. Pancytopenia likely secondary to leflunomide. Echocardiogram ordered. Syncopal episode likely vasovagal precipitated by large BM. Patient's symptoms have significantly improved, vitals are stable and he is deemed stable for discharge. Vital Signs/Physical Exam: Temp Pulse Resp BP Pulse Ox 97.9 F 54 16 185/81 H 95 03/09/22 16:42 03/09/22 16:42 03/09/22 16:42 03/09/22 16:42 03/09/22 16:42 Laboratory Data at Discharge: WBC 1.70 K/uL (4.3-10.9) L* 03/09/22 03:17 Hgb 11.2 g/dL (13.6-17.9) L 03/09/22 03:17 Hct 33.5 % (39.6-49.0) L 03/09/22 03:17 Plt Count 91 K/uL (152-406) L 03/09/22 03:17 PT 14.3 SECONDS (9.5-12.5) H 03/07/22 12:25 INR 1.30 03/07/22 12:25 APTT 32.3 SECONDS (24.3-36.9) 03/07/22 12:25 Sodium 139 mmol/L (136-145) 03/09/22 03:17 Potassium 3.2 mmol/L (3.5-5.1) L 03/09/22 03:17 BUN 6 mg/dL (7-18) L 03/09/22 03:17 Creatinine 0.66 mg/dL (0.70-1.30) L 03/09/22 03:17 Glucose 103 mg/dL (74-106) 03/09/22 03:17 Phosphorus 2.8 mg/dL (2.5-4.9) 03/09/22 03:17 Magnesium 1.9 mg/dL (1.6-2.4) 03/09/22 03:17 Total Bilirubin 0.5 mg/dL (0.2-1.0) 03/07/22 12:25 AST 52 U/L (15-37) H 03/07/22 12:25 ALT 31 U/L (16-61) 03/07/22 12:25 Alkaline Phosphatase 54 U/L (45-117) 03/07/22 12:25 Home Medications: Alendronate Sodium 70 mg PO EVERY 7TH DAY 04/29/16 Aspirin [Aspirin EC 81 MG] 1 tab PO DAILY 04/29/16 Atorvastatin Calcium [Lipitor] 40 mg PO BEDTIME 04/29/16 Calcium Carbonate [Oscal*] 1,500 mg PO DAILY 04/29/16 Cyclobenzaprine [Flexeril*] 10 mg PO DAILYPRN PRN 04/29/16 Docosahexanoic AC/Epa [Fish Oil 1,000 MG*] 1,200 mg PO DAILY 04/29/16 Hydralazine HCl 50 mg PO BID 04/29/16 Leflunomide [Arava] 20 mg PO DAILY 04/29/16 Meclizine HCl 25 mg PO QIDP PRN 04/29/16 Metoprolol Tartrate [Lopressor*] 50 mg PO BID 04/29/16 Omeprazole [Prilosec] 40 mg PO DAILY 04/29/16 Pyridoxine [Vitamin B-6*] 100 mg PO DAILY 04/29/16 Tamsulosin [Flomax*] 0.4 mg PO BEDTIME 04/29/16 Topiramate [Trokendi Xr] 25 mg PO BEDTIME PRN PRN 04/29/16 Tramadol HCl [Ultram] 50 mg PO BID 04/29/16 Turmeric/Turmeric Root Extract [Turmeric 500 mg Capsule] 500 mg PO DAILY 04/29/16 methylPREDNISolone [Medrol*] 4 mg PO DAILY 04/29/16 Olmesartan Medoxomil 40 mg PO DAILY 03/08/22 Benzonatate [Tessalon Perle*] 100 mg PO TID PRN #30 cap 03/09/22 Ciprofloxacin HCl [Cipro] 500 mg PO BID #8 tab 03/09/22 Oseltamivir [Tamiflu*] 75 mg PO BID #6 cap 03/09/22 metroNIDAZOLE [Flagyl] 500 mg PO Q8H #12 tab 03/09/22 New Medications: Ciprofloxacin HCl [Cipro] 500 mg PO BID #8 tab metroNIDAZOLE [Flagyl] 500 mg PO Q8H #12 tab Oseltamivir [Tamiflu*] 75 mg PO BID #6 cap Benzonatate [Tessalon Perle*] 100 mg PO TID PRN #30 cap PRN Reason: Cough
[2022-03-09] MEDS: TAMSULOSIN 0.4 MG SR CAP PO SCH (20:53)
[2022-03-09] MEDS: ATORVASTATIN 40 MG TAB PO SCH (20:53)
[2022-03-10] MEDS: METRONIDAZOLE 500mg IVPB 500 MG/100 ML BAG IV SCH ×3 (01:18→19:16)
[2022-03-10 04:45] LABS: Absolute Lymphocytes (CBC) 0.6 K/uL (0.7-4.9); Hematocrit 33.7 % (39.6-49.0); Lymphocytes % 31.6 % (15.3-44.8); MCV 82.9 fL (80-100); MPV 11.9 fL (7.6-11.3); RBC Red Blood Cell Count 4.06 M/uL (4.33-5.43)
[2022-03-10 05:17] LABS: Potassium 3.7 mmol/L (3.5-5.1)
[2022-03-10] MEDS: HOME MED 1 EA UNK (Leflunomide [Arava] 20 MG Tablet) PO SCH (09:00)
[2022-03-10] MEDS ORDERED: POTASSIUM CL SA 10 MEQ TAB PO ONE (09:00)
[2022-03-10] MEDS: TRAMADOL HCL 50 MG TAB PO SCH ×2 (11:04→20:40)
[2022-03-10] MEDS: METOPROLOL TAR 50 MG TAB PO SCH ×2 (11:06→20:41)
[2022-03-10] MEDS: HYDRALAZINE HCL 25 MG TABLET PO SCH ×2 (11:06→20:40)
[2022-03-10] MEDS: PYRIDOXINE (VIT B6) 50 MG TAB PO SCH (11:06)
[2022-03-10] MEDS: PANTOPRAZOLE 40MG TABLET PO SCH (11:07)
[2022-03-10] MEDS: OSELTAMIVIR 75 MG CAP PO SCH ×2 (11:07→20:40)
[2022-03-10] MEDS: CALCIUM CARBONATE 500 MG TAB PO SCH (11:07)
[2022-03-10] MEDS: VALSARTAN 160 MG TAB PO SCH (11:07)
[2022-03-10] MEDS: ASPIRIN EC 81 MG TAB PO SCH (11:07)
--- NOTE | 2022-03-10 11:08 | P.PN ---
Subjective Date of Service: 03/10/22 Primary Care Provider: unknown Chief Complaint: Syncope/Colitis/Flu Patient lying in bed resting stated no chest pain, SOB, nausea, vomiting, diarrhea, or constipation. No major events upon examination. Physical Examination - Vital Signs Temperature: 98.1 F Blood Pressure: 187/86 Pulse: 58 Respirations: 16 Pulse Ox (%): 97 - Physical Exam General: Alert Respiratory: Clear to auscultation bilaterally Cardiovascular: Normal S1 S2 Gastrointestinal: Normal bowel sounds Musculoskeletal: No swelling Integumentary: No rashes Neurological: Normal speech Assessment And Plan - Current Problems (Diagnosis) (1) Colitis Current Visit: Yes Status: Acute Plan: Per CT shows colitis 03/08 stool: Pending for culture 03/07 BC/UC: Negative Currently on IV Ciprofloxacin and Flagyl, started 03/09 (2) Influenza A Current Visit: Yes Status: Acute Plan: 03/07: Influenza A positive Currently on Tamiflu started 03/09 (3) Pancytopenia Current Visit: Yes Status: Acute Plan: WBC today 1.9; Neurophil 700. Keep monitoring signs of neutropenia. if neutrophil counts below 500, please place patient on neutropenic precaution isolation We will follow the patient closely - Plan Case has been discussed with Dr. Perez N
[2022-03-10] MEDS: CIPROFLOXACIN 400mg IV 400 MG/200 ML BAG IV SCH ×2 (11:10→20:41)
--- NOTE | 2022-03-10 14:35 | EKG ---
Test Date: 2022-03-07 Test Time: 12:57:27 Accounts Manager: KIARA MEASUREMENT RESULTS: Intervals: Rate: 57 MT: 150 QRSD: 140 QT: 448 QTc: 436 Jeannette: P: 66 MT: 150 QRS: 61 T: 5 INTERPRETIVE STATEMENTS: Sinus bradycardia with marked sinus arrhythmia Nonspecific intraventricular block T wave abnormality, consider anterior ischemia Abnormal ECG Compared to ECG 03/07/2022 12:56:55 Sinus rhythm no longer present Atrial premature complex(es) no longer present Aberrant conduction of supraventricular beat(s) no longer present T-wave abnormality still present Possible ischemia still present Electronically Signed On 03-10-22 14:32:43 DYE COLORIST DYER by Vipin Goodrich
[2022-03-10 16:07] VITALS: O2SAT 99
[2022-03-10] MEDS: D5NS KCL 20MEQ 20 MEQ/1,000 ML BAG IV SCH ×2 (19:00→19:15)
[2022-03-10] MEDS: TAMSULOSIN 0.4 MG SR CAP PO SCH (20:40)
[2022-03-10] MEDS: ATORVASTATIN 40 MG TAB PO SCH (20:40)
[2022-03-11] MEDS: METRONIDAZOLE 500mg IVPB 500 MG/100 ML BAG IV SCH (02:34)
[2022-03-11 04:34] LABS: Bicarbonate 28 mmol/L (21-32); Glomerular Filtration Rate 100 ml/min (=/>90); Glucose Level 116 mg/dL (74-106); Potassium 3.6 mmol/L (3.5-5.1); Sodium Level 136 mmol/L (136-145)
[2022-03-11 04:39] LABS: BUN Blood Urea Nitrogen < 3 mg/dL (7-18)
[2022-03-11 05:38] LABS: Absolute Lymphocytes (CBC) 0.7 K/uL (0.7-4.9); Hematocrit 36.6 % (39.6-49.0); Lymphocytes % 29.1 % (15.3-44.8); MPV 12.4 fL (7.6-11.3); RBC Red Blood Cell Count 4.41 M/uL (4.33-5.43)
[2022-03-11] MEDS: D5NS KCL 20MEQ 20 MEQ/1,000 ML BAG IV SCH (05:48)
--- NOTE | 2022-03-11 06:32 | PN ---
Date of Progress Note: 03/10/2022 Patient was seen this morning for followup. Current hospital records reviewed. He was sleeping, eas isa arousable. Denies any complaints. No abdominal pain, nausea, vomiting. Denies any diarrhea. Objective: Vital Signs: Reviewed. HEENT: Unremarkable. Lungs: Clear to auscultation. Heart: Sounds normal. Abdomen: Soft. Bowel sounds normal. No guarding, rigidity, tenderness, distention. Extremities: No leg edema. Labs: Yesterday, white count was 1.7, hemoglobin 11.2, platelets 91. Upon admission, white count wa s 3.4, hemoglobin 11, platelets 89 on 03/07/2022. Today, white count 1.9, hemoglobin 11.4, platelets 96. His potassium was 3.2 on March 08 and today sodium 140, potassium 3.7, chloride 107, bicarb 28, BUN 4, creatinine 0.63, glucose 115. Impression: 1.Colitis. 2.Influenza A with respiratory manifestation. 3.Hypertension. 4.Pancytopenia. Plan: We will go ahead and continue current antibiotics, which are Cipro and metronidazole and kamryn nue antiviral therapy, which is Tamiflu. Continue current antihypertensive medication. We will repe at blood work tomorrow morning and possible discharge to go home tomorrow. Details of plan of treatment discussed with the patient. Continue current DVT prophylaxis . RENE/MODL Voice ID: [id number] Report ID: [id number]
[2022-03-11 08:17] VITALS: BP 168/84; TEMP 97.7
[2022-03-11] MEDS: HOME MED 1 EA UNK (Leflunomide [Arava] 20 MG Tablet) PO SCH (09:00)
[2022-03-11] MEDS ORDERED: POTASSIUM CL SA 10 MEQ TAB PO ONE (09:00)
[2022-03-11] MEDS: CIPROFLOXACIN 400mg IV 400 MG/200 ML BAG IV SCH (09:00)
[2022-03-11] MEDS: PYRIDOXINE (VIT B6) 50 MG TAB PO SCH (09:01)
[2022-03-11] MEDS: CALCIUM CARBONATE 500 MG TAB PO SCH (09:02)
[2022-03-11] MEDS: HYDRALAZINE HCL 25 MG TABLET PO SCH (09:03)
[2022-03-11] MEDS: VALSARTAN 160 MG TAB PO SCH (09:04)
[2022-03-11] MEDS: OSELTAMIVIR 75 MG CAP PO SCH (09:04)
[2022-03-11] MEDS: ASPIRIN EC 81 MG TAB PO SCH (09:04)
[2022-03-11] MEDS: PANTOPRAZOLE 40MG TABLET PO SCH (09:05)
[2022-03-11] MEDS: METOPROLOL TAR 50 MG TAB PO SCH (09:05)
[2022-03-11] MEDS: TRAMADOL HCL 50 MG TAB PO SCH (09:06)
--- NOTE | 2022-03-11 09:50 | P.PN ---
Subjective Date of Service: 03/11/22 Primary Care Provider: unknown Chief Complaint: Syncope/Colitis/Flu Patient lying in bed resting stated no chest pain, SOB, nausea, vomiting, diarrhea, or constipation. No major events upon examination. Physical Examination - Vital Signs Temperature: 97.7 F Blood Pressure: 168/84 Pulse: 62 Respirations: 18 Pulse Ox (%): 96 Assessment And Plan - Current Problems (Diagnosis) (1) Colitis Current Visit: Yes Status: Acute Plan: Per CT shows colitis 03/08 stool: Pending for culture 03/07 BC/UC: Negative Currently on IV Ciprofloxacin and Flagyl, started 03/09 (2) Influenza A Current Visit: Yes Status: Acute Plan: 03/07: Influenza A positive Currently on Tamiflu started 03/09 (3) Pancytopenia Current Visit: Yes Status: Acute Plan: WBC today 1.9; Neurophil 700. Keep monitoring signs of neutropenia. if neutrophil counts below 500, please place patient on neutropenic precaution isolation We will follow the patient closely - Plan Case has been discussed with Dr. Perez, N
--- NOTE | 2022-03-12 07:06 | ECHO ---
HEIGHT: 5 ft 8 in WEIGHT: 180 lb 0 oz DATE OF STUDY: 03/11/[address]: Jaya Stratton MD 2-DIMENSIONAL: YES M.MODE: YES DOPPLER: YES COLOR FLOW: YES TDS: PORTABLE: YES DEFINITY: BUBBLE STUDY: DIAGNOSIS: SYNCOPE CARDIAC HISTORY: CATHERIZATION: NO SURGERY: NO PROSTHETIC VALVE: NO PACEMAKER: NO MEASUREMENTS (cm) DIASTOLIC (NORMALS) SYSTOLIC (NORMALS) IVSd 1.2 (0.6-1.2) LA Diam 2.8 (1.9-4.0) LVEF 61% LVIDd 4.5 (3.5-5.7) LVIDs 3.0 (2.0-3.5) %FS 32% LVPWd 1.3 (0.6-1.2) Ao Diam 2.8 (2.0-3.7) 2 DIMENSIONAL ASSESSMENT: RIGHT ATRIUM: NORMAL LEFT ATRIUM: NORMAL RIGHT VENTRICLE: NORMAL LEFT VENTRICLE: NORMAL TRICUSPID VALVE: MILD TRICUSPID REGURGITATION MITRAL VALVE: MILD MITRAL REGURGITATION PULMONIC VALVE: NORMAL AORTIC VALVE: NORMAL PERICARDIAL EFFUSION: NONE AORTIC ROOT: NORMAL LEFT VENTRICULAR WALL MOTION: NORMAL DOPPLER/COLOR FLOW: SEE BELOW COMMENTS: 1. NORMAL LEFT VENTRICULAR EJECTION FRACTION 55-60% 2. NORMAL WALL MOTION 3. MILD MITRAL REGURGITATION 4. MILD TRICUSPID REGURGITATION 5. MILD MITRAL ANNULAR CALCIFICATION 6. AORTIC SCLEROSIS, NO AORTIC STENOSIS. TECHNOLOGIST: HINA TUCKER
== END 2022-03-11 10:25 | disposition home or self-care (01) | DRG 312 ==
LOC: ER 12:10 → ERHOLD 15:29 → 4TH 16:31
PROVIDERS: ADMIT Internal Medicine; ATTEND Internal Medicine
DX: R55 Syncope and collapse (principal); A09 Infectious gastroenteritis and colitis, unspecified; D61.818 Other pancytopenia; J10.1 Influenza due to other identified influenza virus with other respiratory manifestations; K21.9 Gastro-esophageal reflux disease without esophagitis; I10 Essential (primary) hypertension; M48.54XD Collapsed vertebra, not elsewhere classified, thoracic region, subsequent encounter for fracture with routine healing; Z79.82 Long term (current) use of aspirin; Z79.899 Other long term (current) drug therapy; Z20.822 Contact with and (suspected) exposure to COVID-19
CPT/HCPCS: 0240U; 36415; 70450; 71045; 74177; 80048; 80053; 81003; 81015; 82553; 82947; 83605; 83735; 84100; 84484; 85025; 85610; 85730; 87040; 87045; 87046; 87086; 87088; 93005; 93306; 96361; 96365; 96366; 96368; 97116; 97161; 97530; 99285; J0744; J3480; J7030; Q9967

== ENCOUNTER 2023-10-20 07:22 | Day surgery (SDC) | payer OTHER ==
[2023-10-20 07:48] LABS: Absolute Eosinophils 0.2 K/uL (0-0.5); Absolute Lymphocytes (CBC) 1.2 K/uL (0.7-4.9); Absolute Monocytes 0.6 K/uL (0.1-1.3); Absolute Neutrophil 3.3 K/uL (1.8-8.0); Basophils % 0.7 % (0-1.3); Eosinophils % 3.4 % (0-4.4); Hematocrit 37.5 % (39.6-49.0); Hemoglobin 12.7 g/dL (13.6-17.9); Lymphocytes % 22.3 % (15.3-44.8); MCH 29.9 pg (27.0-35.0); MCHC 33.9 g/dL (32.0-36.0); MCV 88.2 fL (80-100); MPV 10.9 fL (7.6-11.3); Monocytes % 11.1 % (3.3-12.3); Neutrophils % 62.5 % (41.7-73.7); Nucleated Red Blood Cells % 0.1 % (0-0); Platelets 131 thou/uL (152-406); RBC Red Blood Cell Count 4.25 M/uL (4.33-5.43); Red Cell Distribution Width 14.2 % (12.1-15.2)
--- NOTE | 2023-10-20 07:56 | RAD REPORT ---
[facility]AM DES[facility] 7:45 am CLINICAL HISTORY: PRE-OP. Hypertension COMPARISON: Chest Single View dated 03/07/2022; Chest Pa And Lat (2 Views) dated 02/01/2019; Chest S maya View dated 07/20/2016; Chest Pa And Lat (2 Views) dated 03/24/2016 TECHNIQUE: Portable AP view of the chest. FINDINGS: Streaky right basilar atelectasis, stable. No new focal airspace opacity. No pneumothorax or effusion. The cardiomediastinal contours are unchanged with tortuosity of the thoracic aorta. IMPRESSION: No acute cardiopulmonary process.
[2023-10-20 08:15] LABS: Anion Gap 10.9 mEq/L (5.0-15.0); Potassium 3.9 mEq/L (3.5-5.1)
[2023-10-20] MEDS: Ringers Lactate 1,000 ML IV ONE (08:15)
[2023-10-20] MEDS ORDERED: FENTANYL CITR 100 MCG/2 ML ONE (09:19)
[2023-10-20] MEDS ORDERED: LIDOCAINE 2% MPF 5 ML VIAL ONE (09:19)
[2023-10-20] MEDS ORDERED: ONDANSETRON 4 MG/2 ML VIAL ONE (09:19)
[2023-10-20] MEDS ORDERED: propofoL 200 MG/20 ML VIAL IV ONE (09:19)
[2023-10-20] MEDS ORDERED: EPHEDRINE SULF 50 MG/ML VIAL ONE (09:54)
[2023-10-20] MEDS: CEFAZOLIN SODIUM 2 GM/VIAL ONE (09:57)
[2023-10-20] MEDS ORDERED: dexAMETHasone 10 MG/ML VIAL ONE (09:58)
[2023-10-20] MEDS: BUPIVACAINE 0.5% PF 10 ML VIAL ONE ×2 (10:03→10:15)
--- NOTE | 2023-10-20 10:45 | P.OP ---
Date of Service: 10/20/23 Preop diagnosis: Infected sebaceous cyst with abscess right mid back Postop diagnosis: Same Procedure performed: Wide excision of infected sebaceous cyst 10 x 4 cm with layered closure Surgeon: Nigel Davis MD Cardiovascular Disease Specialist: None Estimated blood loss: Minimal Specimen: Cystic fluid for culture and sensitivity and the cyst itself Findings: As above Anesthesia: General Complications: None Drains: [place] quarter-inch drain Fluids and blood products: Nonapplicable Disposition: Recovery room Operative note: Patient brought to the OR placed in supine position. General anesthesia began. Patient placed in the left lateral position. Patient prepped and draped in usual sterile fashion. Marcaine 0.5% infiltrated locally. 15 blade used to make a 10 x 4 cm incision around the infected sebaceous cyst. Subcutaneous tissue divided. Bleeding controlled cautery. Entire cyst in total removed. And sent to pathology as specimen. Fluid from the cyst was cultured. Wound irrigated and bleeding controlled with cautery. Flaps created. Quarter- inch drain placed and secured with 3-0 nylon. 2-0 chromic used to approximate subcutaneous tissue. Sherman used to loosely close the skin. Sterile dressing applied. Patient awakened and taken to recovery room in good general condition. CC: Dr. Lechuga's office
[2023-10-20 12:15] VITALS: BP 147/82; TEMP 97; O2SAT 97
--- NOTE | 2023-10-20 16:29 | EKG ---
Test Date: 2023-10-20 Test Time: 07:46:39 Structural Engineering Technician: SUE MEASUREMENT RESULTS: Intervals: Rate: 53 AZ: 152 QRSD: 138 QT: 456 QTc: 427 Soper: P: 60 AZ: 152 QRS: 49 T: -57 INTERPRETIVE STATEMENTS: Sinus bradycardia Right bundle branch block Abnormal ECG Compared to ECG 03/07/2022 12:57:27 Right bundle-branch block now present Sinus arrhythmia no longer present T-wave abnormality no longer present Possible ischemia no longer present Electronically Signed On 10-20-23 16:28:31 CDT by Vipin Goodrich
== END 2023-10-20 12:10 | disposition home or self-care (01) ==
LOC: OR 07:22
PROVIDERS: ATTEND Surgery
PROC: 0JB70ZZ Excision of Back Subcutaneous Tissue and Fascia, Open Approach (ICD-10-PCS; principal; 2023-10-20 09:30)
DX: L72.0 Epidermal cyst (principal); L02.212 Cutaneous abscess of back [any part, except buttock and flank]; E78.00 Pure hypercholesterolemia, unspecified; I50.9 Heart failure, unspecified
CPT/HCPCS: 36415; 71045; 80048; 85025; 87070; 87075; 87205; 88304; 93005; J1100; J2001; J2405; J2704; J3010; J7120